=== PATIENT | male | born 1980 | race African-American/Black ===

== ENCOUNTER 2016-08-24 14:31 | Inpatient (IN) | payer OTHER ==
[~2016-08-24] VITALS: Ht 193 cm; Wt 142.0 kg
[~2016-08-24 14:31] MED LIST: LORAZEPAM 1 MG TABLET FOR INSOMNIA PO PRN
[2016-08-24 14:45] VITALS: BP 134/80
--- NOTE | 2016-08-24 14:45 | NUR ---
MS NICANOR OPENING RECEIVED PATIENT FOR CLINICAL TRIAL BY DR SILVA. PATIENT DENIES SOB, DIFFICULTY BREATHING OR PAIN. ALL BELONGINGS WITH PATINET CHARTED AND ACCOUNTED FOR. PATIENT STATES NO NEEDS. STATES HE WAS EDUCATED ON TRIAL BEFORE COMING HERE. PATIENT EDUCATED ON SMOKING POLICY AND ALLOTED TIMES WE ARE ABLE TO TAKE THEM OUT. PATIENT STATES UNDERSTANDING. ORDERS WILL BE INPUT ACCORDING TO .
[2016-08-24] MEDS ORDERED: MAGNESIUM HYDROXIDE 30 ML UDC PO PRN (15:00)
[2016-08-24 16:00] VITALS: BP 137/84
--- NOTE | 2016-08-24 18:35 | NUR ---
MS RN CLOSING PATIENT STATES NO NEEDS. ROUNDED Q2H OR LESS. STABLE. CALL LIGHT IN REACH, BED LOWERED AND LOCKED, RAILS UPX3 FOR SAFETY. WILL ENDORSE CARE TO BABAR RN
--- NOTE | 2016-08-24 19:30 | NUR ---
MS NURSE'S OPENING NOTES RECEIVED REPORT FROM DAY NURSE. PATIENT WAS IN HIS ROOM AND HE MENTIONED THAT HE GOES TO BED AT 10PM AND REQUESTED TO HAVE HIS NIGHT MED SCHEDULE TO BE CHANGED TO EARLIER SINCE HE GOES TO SLEEP AT 10PM. I TOLD HIM THAT I WILL DOCUMENT HIS REQUEST IN THE NURSE'S NOTES.
[2016-08-24 20:00] VITALS: BP 111/94
[2016-08-24] MEDS: chlorproMAZINE HCL 25 MG TABLET PO SCH (20:21)
[2016-08-24] MEDS: MIRTAZAPINE 15 MG TABLET PO SCH (20:21)
[2016-08-24] MEDS: DIVALPROEX SODIUM 500 MG TABLET.DR PO SCH (20:21)
--- NOTE | 2016-08-24 20:30 | NUR ---
MS NURSES NOTES ANGLE ROLL OPERATOR SCHEDULE PT REQUESTED THAT HS MEDS BE ADMINISTERED AROUND 1999 SINCE HE WILL BE SLEEPING AT 2200. I ADMINISTERED HIS DEPAKOTE, REMERON, AND THORAZINE EARLIER THAN SCHEDULED DUE TO PATIENT'S REQUEST. CHECKED AND OKAYED BY NURSE EVELYN SCHULTZ.
[2016-08-25 03:24] VITALS: BP 111/94
--- NOTE | 2016-08-25 07:20 | NUR ---
RN INITIAL NOTES RECEIVED PT IN BED, A/O X4, ABLE TO MAKE NEED KNOWN, PT IS ON RA, SATING WELL, NO S/S OF RESP. DISTRESS OR SOB NOTED AT THIS TIME, PT WAS ON HIS PHONE, ANSWERING QUESTIONS, PLEASANT, EXPLAINED SMOKING SCHEDULE TO PT, VERBALIZED UNDERSTANDING, EXPLAINED PLAN OF CARE, PT NODDED HEAD, ALL SAFETY MEASURES IN PLACE AT ALL TIMES, CALL LIGHT WITHIN EASY REACH, WILL MONITOR PT CLOSELY
--- NOTE | 2016-08-25 07:27 | NUR ---
MS NURSE'S CLOSING NOTES GAVE REPORT TO MORNING NURSE. PATIENT IS RESTING IN BED, SIDE RAILS UP X2, CALL LIGHT WITHIN REACH AND NO SIGNS OF DISTRESS OR SOB.
--- NOTE | 2016-08-25 07:28 | NUR ---
MS NURSES NOTE- PT SLEEPING HOURS PT WAS VERY COOPERATIVE. WENT TO BED AT 10 PM AND WOKE UP AT 7 AM= 9 HOURS OF SLEEP.
[2016-08-25 08:00] VITALS: BP 136/78
[2016-08-25] MEDS: HCTZ 25 MG PO SCH (08:50)
--- NOTE | 2016-08-25 09:54 | NUR ---
RN NOTES PT IN ROOM WATCHING TV, PEACEFULLY, ALL NEEDS MET AT THIS TIME, WILL MONITOR CLOSELY
--- NOTE | 2016-08-25 13:30 | NUR ---
RN NOTES AWARE REGARDING NIGHT MEDICATION, OKAY TO GIVE @ 2000
--- NOTE | 2016-08-25 14:54 | NUR ---
RN NOTES REPORT GIVEN TO MELI RODRIGUEZ XIOMY
--- NOTE | 2016-08-25 15:01 | NUR ---
MS RN NOTES RECEIVED REPORT FROM CAROLE FOR CONTINUITY OF CARE.
[2016-08-25 16:00] VITALS: BP 140/75
--- NOTE | 2016-08-25 18:58 | NUR ---
MS RN CLOSING NOTES PATIENT IN BED, NOT IN DISTRESS, NO SOB NOTED. PATIENT IS AMBULATORY WITH STEADY GAIT AND BALANCE. PATIENT APPEARS CALM AND RELAX, COOPERATIVE WITH STAFF. CALL LIGHT WITHIN REACH. WILL ENDORSE TO ESTIMATE CLERK RN FOR CONTINUITY OF CARE.
[2016-08-25 19:00] VITALS: BP 116/85
--- NOTE | 2016-08-25 19:25 | NUR ---
MS RN OPENING NOTES: RECEIVED PATIENT IN BED AWAKE AND SITTING UP WATCHING TELEVISION. PT A/O X4. PT AMBULATORY WITH A STEADY GAIT. KEPT CLEAN, DRY, AND COMFORTABLE. SKIN IS INTACT. PT ON ROOM AIR. CALL LIGHT WITHIN PT'S REACH. BED KEPT IN LOCKED, LOWEST POSITION, AND SIDE RAILS X2 UP. WILL CONTINUE TO MONITOR PT.
[2016-08-25 20:00] VITALS: BP 116/85
[2016-08-25] MEDS: chlorproMAZINE HCL 25 MG TABLET PO SCH (20:15)
[2016-08-25] MEDS: DIVALPROEX SODIUM 500 MG TABLET.DR PO SCH (20:15)
[2016-08-25] MEDS: MIRTAZAPINE 15 MG TABLET PO SCH (20:15)
--- NOTE | 2016-08-25 20:18 | NUR ---
MR RN NOTES: THORAZINE 150MG, DEPAKOTE 500MG, AND REMERON 15MG WAS GIVEN PO AT THIS TIME PER PATIENT'S REQUEST. DR. SILVA AWARE AND OKAY WITH IT.
--- NOTE | 2016-08-25 21:00 | NUR ---
MS RN NOTES: SEEN PT SLEEPING AT THIS TIME, NOT IN APPARENT DISTRESS WILL CONTINUE TO MONITOR
--- NOTE | 2016-08-26 06:55 | NUR ---
MS RN CLOSING NOTES ALL NEEDS WERE ATTENDED. PATIENT IN BED AWAKE. NO SIGNS AND SYMPTOMS OF DISTRESS NOTED. NO SOB NOTED. PT AMBULATORY WITH STEADY GAIT AND BALANCE. PT ON CLINICAL TRIAL STUDY. KEPT CLEAN, DRY, AND COMFORTABLE. PT ON ROOM AIR AND TOLERATING WELL. BED IN LOWEST, LOCKED POSITION, AND SIDE RAILS X 2 UP. PT SLEPT FOR NINE HOURS. WILL ENDORSE TO DAY SHIFT NURSE FOR CONTINUITY OF CARE.
--- NOTE | 2016-08-26 07:30 | NUR ---
MS/RN Patient received Patient received from nightman, no needs at this time. Call light within reach, will continue to monitor and ensure safety.
[2016-08-26 08:00] VITALS: BP 130/81
[2016-08-26] MEDS: HCTZ 25 MG PO SCH (08:53)
[2016-08-26] MEDS: LORAZEPAM 1 MG TABLET FOR AGITATION PO PRN (08:59)
--- NOTE | 2016-08-26 09:00 | NUR ---
MS/RN Ativan Ativan 1mg given PO at patient's request as stated that he was starting to feel anxious. Will monitor effectiveness.
[2016-08-26 10:00] VITALS: BP 130/81
--- NOTE | 2016-08-26 13:30 | NUR ---
MS/RN Behavior Patient has remained calm and cooperative throughout this morning, no behavior concerns.
[2016-08-26 16:00] VITALS: BP 136/89
[2016-08-26 16:27] VITALS: BP 136/89
--- NOTE | 2016-08-26 18:00 | NUR ---
MS/RN End note No changes in plan of care, to continue with study orders. No behavior concerns. Will endorse to material handler 2nd shift.
--- NOTE | 2016-08-26 19:30 | NUR ---
MS/RN OPENING NOTES RECEIVED PT AWAKE, TALKING ON HIS CELL PHONE. A/OX4. BREATHING EVEN, UNLABORED, DENIES PAIN. AMBULATING IN THE HALLWAYS. IS CALM, COOPERATIVE, DENIES THOUGHTS OF SI/HI. BED IN LOW/LOCKED POSITION, CALL LIGHT IN REACH. BED RAILS UPX2. WILL CONTINUE TO MONITOR
[2016-08-26 20:00] VITALS: BP 139/80
[2016-08-26] MEDS: DIVALPROEX SODIUM 500 MG TABLET.DR PO SCH (21:22)
[2016-08-26 22:00] VITALS: BP 139/80
[2016-08-26] MEDS ORDERED: MIRTAZAPINE 15 MG TABLET PO SCH (22:00)
[2016-08-26] MEDS ORDERED: chlorproMAZINE HCL 25 MG TABLET PO ONE (22:00)
--- NOTE | 2016-08-26 22:00 | NUR ---
MS/RN NOTES PT BACK FROM SMOKING, ACCOMPANIED BY HAT BRIM CURLER. WHEN ASKED IF PT IS EXPERIENCING ANY HALLUCINATIONS AT THIS TIME, PT BECAME A LITTLE GUARDED AND DENIED ANY CURRENT HALLUCINATIONS. MENTIONED THAT HE'S HAD THEM BEFORE BUT NOT AT THIS TIME. STATED "WHY DO YOU HAVE TO ASK ME QUESTIONS LIKE THAT?". INFORMED HIM THAT WE WANT TO SEE IF THE MEDICATION IS HELPFUL OR NOT. PT WALKED BACK TO HIS ROOM
--- NOTE | 2016-08-27 02:00 | NUR ---
MS/RN NOTES PT ASLEEP, BREATHING EVEN AND UNLABORED. WILL CONTINUE TO MONITOR
--- NOTE | 2016-08-27 07:20 | NUR ---
MS/RN CLOSING NOTES PT ASLEEP, EASILY AROUSABLE, RESTING COMFORTABLY IN BED. ON ROOM AIR, NO S/S OF DISTRESS. DENIES PAIN. NO CHANGES OVERNIGHT. PT SLEPT 8 HOURS. ALL NEEDS MET AND ATTENDED TO. MADE PT COMFORTABLE THROUGHOUT SHIFT. ENDORSED TO AM SHIFT XIOMY.
--- NOTE | 2016-08-27 07:30 | NUR ---
MS/RN Patient received Patient received from tool and cutter grinder. No needs or concerns at this time, remains cooperative with plan of care. Will continue to monitor and ensure safety.
[2016-08-27 08:00] VITALS: BP 140/76
[2016-08-27] MEDS: HCTZ 25 MG PO SCH (08:00)
--- NOTE | 2016-08-27 08:05 | NUR ---
MS/RN Medications Morning medications given as ordered.
[2016-08-27] MEDS: LORAZEPAM 1 MG TABLET FOR AGITATION PO PRN ×2 (08:59→15:00)
--- NOTE | 2016-08-27 09:00 | NUR ---
MS/RN Ativan 1mg ativan given PO at patient's request as starting to feel anxious. Will monitor effect.
[2016-08-27 10:10] VITALS: BP 140/76
[2016-08-27 16:00] VITALS: BP 124/100
--- NOTE | 2016-08-27 18:35 | NUR ---
MS/RN End note No changes at this time. Ativan last administered at 1500. No behavior concerns, will endorse to awake overnight counselor.
--- NOTE | 2016-08-27 19:30 | NUR ---
RN NOTE; RECEIVED PT SITTING ON THE CHAIR. BREATHING EVENLY. NO SOB. NO DISTRESS. DEMANDING TO TAKE HIS NIGHT MEDS AT 1999 AND ASKING TO GO FOR A SMOKE AFTER THAT. EXPLAINED TO THE PT THAT I CAN TALK TO PHARMACY FOR POSSIBLE CHANGE OF ADMINISTRATION TIME ON THE NIGHT MEDS. NEEDS ATTENDED. CALL LIGHT WITHIN REACH. WILL CONT TO MONITOR
[2016-08-27 20:00] VITALS: BP 123/85
[2016-08-27] MEDS ORDERED: DIVALPROEX SODIUM 500 MG TABLET.DR PO SCH (20:00)
[2016-08-27] MEDS ORDERED: MIRTAZAPINE 15 MG TABLET PO SCH (20:00)
--- NOTE | 2016-08-27 20:40 | NUR ---
NIGHT MEDICATION GIVEN AT 1999 PER PT'S REQUEST. PHARMACY MADE AWARE.
[2016-08-27] MEDS: LORAZEPAM 1 MG TABLET FOR INSOMNIA PO PRN (21:29)
--- NOTE | 2016-08-27 21:29 | NUR ---
ATIVAN 2MG GIVEN PER PT'S REQUEST FOR ANXIETY AND INABILITY TO SLEEP. WILL CONT TO MONITOR
[2016-08-27] MEDS ORDERED: chlorproMAZINE HCL 25 MG TABLET PO ONE (22:00)
[2016-08-28] MEDS: HCTZ 25 MG PO SCH (06:32)
--- NOTE | 2016-08-28 06:53 | NUR ---
RN NOTE; PT AWAKE AND AMBULATORY. TAKING SHOWER. W/ EPISODES OF ANXIETY. BREATHING EVENLY. NO SOB. NO DISTRESS. NO ACUTE CHANGES DURING THE NIGHT. NO C/O HALLUCINATIONS. NO VERBALIZATION OF SUICIDE,NEEDS ATTENDED. WILL CONT TO MONITOR AND WILL ENDORSE TO AM SHIFT FOR XIOMY.
[2016-08-28 08:00] VITALS: BP 118/66
--- NOTE | 2016-08-28 08:00 | NUR ---
AM RN NOTES RECEIVED PT IN STABLE CONDITION, WALKING IN HALLWAY, PROVIDED WITH BREAKFAST, WILL MONITOR.
[2016-08-28] MEDS: LORAZEPAM 1 MG TABLET FOR INSOMNIA PO PRN ×2 (09:14→21:17)
--- NOTE | 2016-08-28 09:15 | NUR ---
PT NOTED WITH RESTRESS, WALKING IN HALLWAY NOT ABLE TO SIT DOWN, STATING:"I NEED MY ATIVAN 2 MG BECAUSE 1 MG IS NOT HELPING", DR. PRUITT CALLED AND PER OKAY TO GIVE ATIVAN 2 MG FOR NOW.
[2016-08-28 10:00] VITALS: BP 115/62
[2016-08-28 16:45] VITALS: BP 118/66
--- NOTE | 2016-08-28 18:31 | NUR ---
PT IN STABLE CONDITION, ATIVAN WITH HELP, NO ANXIETY AT THIS TIME, WILL INDORSE TO NEXT SHIFT FOR XIOMY.
--- NOTE | 2016-08-28 19:30 | NUR ---
RN NOTE; RECEIVED PT SITTING ON THE CHAIR. IN HIS ROOM. BREATHING EVENLY. NO SOB. NO DISTRESS. NEEDS ATTENDED. CALL LIGHT WITHIN REACH. WILL CONT TO MONITOR
[2016-08-28 20:00] VITALS: BP 133/78
--- NOTE | 2016-08-28 20:08 | NUR ---
S/B DR. ANDREWS W/ BELIAO.
--- NOTE | 2016-08-28 21:17 | NUR ---
ATIVAN 2MG GIVEN FOR C/O INSOMNIA AND ANXIETY. WILL CONT TO MONITOR
[2016-08-28] MEDS: ACETAMINOPHEN ES 500 MG TABLET PO PRN (22:31)
--- NOTE | 2016-08-28 22:33 | NUR ---
TYLENOL GIVEN ORDERED FOR C/O MILD BODY ACHE. WILL CONT TO MONITOR
[2016-08-29] MEDS: HCTZ 25 MG PO SCH (06:09)
--- NOTE | 2016-08-29 06:58 | NUR ---
RN NOTE; PT REMAINED STABLE DURING THE REINFORCED IRONWORKER . NO ACUTE CHANGES. NO PSYCH OR BEHAVIORAL ISSUES. HAD A GOOD NIGHT SLEEP. WILL CONT TO MONITOR AND WILL ENDORSE TO AM SHIFT FOR XIOMY.
--- NOTE | 2016-08-29 07:30 | NUR ---
MS RN AM NOTES PT AWAKE, OUT OF BED, AAO X 4, ON ROOM AIR, NOT IN ANY DISTRESS. DENIES ANY PAIN AT THIS TIME. NO IV ACCESS. AMBULATORY, NO SKIN ISSUES. CALL LIGHT WITHIN REACH. BED LOW LOCKED. SR UP X 2, INSTRUCTED TO CALL FOR ASSISTANCE. SAFETY MEASURES IN PLACE. WILL CONTINUE TO MONITOR. CALM AND COOPERATIVE
[2016-08-29 08:00] VITALS: BP 119/77
[2016-08-29] MEDS: LORAZEPAM 1 MG TABLET FOR AGITATION PO PRN (08:36)
[2016-08-29 10:00] VITALS: BP 119/77
[2016-08-29 16:00] VITALS: BP 114/65
[2016-08-29 18:00] VITALS: BP 114/65
--- NOTE | 2016-08-29 18:37 | NUR ---
MS RN NOTES PT RESTING IN BED, AAO X 4, ON ROOM AIR, NOT IN ANY DISTRESS. DENIES ANY PAIN AT THIS TIME. NO IV ACCESS. AMBULATORY, NO SKIN ISSUES. CALL LIGHT WITHIN REACH. BED LOW LOCKED. SR UP X 2, INSTRUCTED TO CALL FOR ASSISTANCE. VSS. SAFETY MEASURES IN PLACE. ALL NEEDS MET. WILL ENDORSE TO NEXT SHIFT FOR XIOMY. SEEN BY DR. SILVA EARLIER.
--- NOTE | 2016-08-29 19:30 | NUR ---
RN NOTE; RECEIVED PT SITTING ON THE CHAIR. IN HIS ROOM. BREATHING EVENLY. NO SOB. NO DISTRESS. DISCUSSED AM LABS AND NPO STATUS W/ PT W/ UNDERSTANDING. NEEDS ATTENDED. CALL LIGHT WITHIN REACH. WILL CONT TO MONITOR
[2016-08-29 20:00] VITALS: BP 114/83
[2016-08-29] MEDS: LORAZEPAM 1 MG TABLET FOR INSOMNIA PO PRN (20:10)
[2016-08-30] VITALS (7 sets, daily range): BP systolic 100–132; BP diastolic 55–71
--- NOTE | 2016-08-30 06:24 | NUR ---
RN NOTE; PT REMAINED CALM AND STABLE DURING THE ROUND CORNER CUTTER OPERATOR . NO ACUTE CHANGES. NO PSYCH OR BEHAVIORAL ISSUES. HAD A GOOD NIGHT SLEEP. NPO FOR TODAY'S BLOOD DRAW. WILL CONT TO MONITOR AND WILL ENDORSE TO AM SHIFT FOR XIOMY.
--- NOTE | 2016-08-30 07:30 | NUR ---
MS/RN OPENING NOTE PT. IS IN BED AWAKE, A&OX4. PT. IS NPO AT THIS TIME FOR MORNING LABS. PT. IS BREATHING ON ROOM AIR, NO SOB, AND NOT IN DISTRESS. CALL LIGHT WITHIN REACH, AND NEEDS ATTENDED TO.
[2016-08-30] MEDS: HCTZ 25 MG PO SCH (09:12)
[2016-08-30] MEDS: LORAZEPAM 1 MG TABLET FOR AGITATION PO PRN (17:33)
--- NOTE | 2016-08-30 17:57 | NUR ---
MS/STUCCO PLASTERER PT. C/O AGITATION, 1MG OF ATIVAN WAS GIVEN.
--- NOTE | 2016-08-30 18:57 | NUR ---
MS/RN CLOSING NOTE PT. IS A&OX4, NO S/S OF DISTRESS. PT. IS NOT C/O AGITATION. BED IS IN LOW POSITION, SIDE RAILS IN APPROPRIATE POSITION. NEEDS ATTENDED TO. WILL ENDORSE REPORT TO TEACHER OF THE DEAF NURSE.
--- NOTE | 2016-08-30 20:00 | NUR ---
PATIENT RESTING COMFORTABLY IN BED, NO SOB, BREATHING IS EVEN AND UNLABORED, NO HALLUCINATIONS AT THIS TIME. KEPT SAFE AND COMFORTABLE, CALL LIGHT WITHIN REACH.
[2016-08-30] MEDS ORDERED: LORAZEPAM 1 MG TABLET FOR INSOMNIA PO PRN (22:00)
[2016-08-31] MEDS: MAG HYDROX/AL HYDROX/SIMETH 30 ML UDC PO PRN (04:22)
[2016-08-31] MEDS: HCTZ 25 MG PO SCH (05:29)
[2016-08-31 05:30] VITALS: BP 121/60
--- NOTE | 2016-08-31 06:43 | NUR ---
PATIENT AWAKE, NO RESPIRATORY DISTRESS, DENIES ANY PAIN, NO HALLUCINATIONS AT THIS TIME, COMPLAINED OF ABDOMINAL UPSET, GIVEN MAALOX, SHOWERED EARLY, NEEDS ATTENDED, CALL LIGHT WITHIN REACH.
--- NOTE | 2016-08-31 07:30 | NUR ---
MS/RN Patient received Patient received from night patrol inspector. Pacing in hallway, wanting to go outside to smoke. Explained to him that w have a schedule that we are following, patient upset by this response and went back to room. Will continue to monitor and ensure safety.
[2016-08-31 08:00] VITALS: BP 131/73
--- NOTE | 2016-08-31 08:50 | NUR ---
MS/RN Medications Patient refusing to take investigational medication at this time, stating that he wants to smoke first.
[2016-08-31] MEDS: INVEST MED MK-8189 MISC 1 TAB EA PO SCH (09:17)
[2016-08-31] MEDS: INVEST MED MK-8189 MISC 1 CAP EA PO SCH (09:18)
[2016-08-31] MEDS: LORAZEPAM 1 MG TABLET FOR AGITATION PO PRN ×2 (09:18→18:47)
--- NOTE | 2016-08-31 09:20 | NUR ---
RN notes patient returned from smoking outside; ambulatory with steady balanced gait; c/o anxiety, requesting ativan; ativan 1mg po given; will continue to monitor.
[2016-08-31 10:30] VITALS: BP 131/73
[2016-08-31 16:00] VITALS: BP 124/89
--- NOTE | 2016-08-31 16:41 | NUR ---
RN NOTES patient escorted off unit by FOUNDATION ENGINEER to smoke; denies any discomfort at this time.
--- NOTE | 2016-08-31 18:48 | NUR ---
RN NOTES patient agitated; ativan 1mg po given; will inform PM nurse.
--- NOTE | 2016-08-31 20:00 | NUR ---
RN NOTES RECEIVED PX AWAKE, ALERT, ORIENTED X 3, AMBULATORY; NOT IN DISTRESS; DENIED PAIN, SOB, N/V; PX SAYS HE IS COMFORTABLE; CALL LIGHT WITHIN REACH.
[2016-08-31 20:06] VITALS: BP 132/70
--- NOTE | 2016-08-31 21:00 | NUR ---
NICANOR NOTES PX CAME BACK FROM SMOKE BREAK, ACCOMPANIED BY TERESITA RIVAS
[2016-08-31 22:00] VITALS: BP 132/70
--- NOTE | 2016-09-01 06:21 | NUR ---
RN NOTES CONDITION AND NEURO STATUS UNCHANGED; PX AWAKE NOW, SLEPT FOR 7 HOURS; NOT IN DISTRESS; DENIED PAIN ,SOB, N/V, DIZZINESS; DUE MEDS GIVEN; TOOK A SHOWER; NEEDS ATTENDED; CALL LIGHT WITHIN REACH. WILL ENDORSE TO NEXT RN.
[2016-09-01] MEDS: HCTZ 25 MG PO SCH (06:37)
[2016-09-01 08:00] VITALS: BP 105/77
--- NOTE | 2016-09-01 08:00 | NUR ---
AM RN NOTES RECEIVED PT IN STABLE CONDITION, NO BEHAVIOR PROBLEMS NOTED, NO ANXIETY OR AGITATION, PROVIDED WITH BREAKFAST, WILL MONITOR PT.
[2016-09-01] MEDS: INVEST MED MK-8189 MISC 1 CAP EA PO SCH (09:30)
[2016-09-01] MEDS: INVEST MED MK-8189 MISC 1 TAB EA PO SCH (09:30)
[2016-09-01 10:00] VITALS: BP 109/65
[2016-09-01] MEDS: LORAZEPAM 1 MG TABLET FOR AGITATION PO PRN (13:28)
[2016-09-01 16:00] VITALS: BP 122/80
[2016-09-01] MEDS: ACETAMINOPHEN ES 500 MG TABLET PO PRN (16:48)
--- NOTE | 2016-09-01 19:32 | NUR ---
PT IN STABLE CONDITION, RESTING IN BED, AWAKE, INDORSED TO NEXT SHIFT FOR XIOMY.
[2016-09-01 20:00] VITALS: BP 122/76
--- NOTE | 2016-09-01 20:00 | NUR ---
PATIENT IN THE ROOM, TALKING ON THE PHONE, CALM, DENIES ANY HALLUCINATIONS AT THIS TIME. WILL CONTINUE TO MONITOR.
[2016-09-01 22:00] VITALS: BP 122/76
--- NOTE | 2016-09-02 02:15 | NUR ---
PATIENT RESTING COMFORTABLY IN BED, NO DISTRESS, WILL CONTINUE TO MONITOR.
[2016-09-02] MEDS: HCTZ 25 MG PO SCH (05:56)
--- NOTE | 2016-09-02 06:06 | NUR ---
GIVEN HCTZ 25 MG PO, BP 140/77 HR 89
--- NOTE | 2016-09-02 06:43 | NUR ---
PATIENT IN BED, ALERT AND AWAKE, NO DISTRESS, DENIES HALLUCINATIONS AT THIS TIME, SLEPT FOR 8 HOURS, SHOWERED EARLY, KEPT SAFE, CALL LIGHT WITHIN REACH.
[2016-09-02 08:00] VITALS: BP 104/61
--- NOTE | 2016-09-02 08:00 | NUR ---
RECEIVED PT IN STABLE CONDITION. PT IS A/O X4. NO SOB OR ANY S/S OF DISTRESS NOTED. WILL CONTINUE TO MONITOR THROUGHOUT SHIFT.
[2016-09-02] MEDS: INVEST MED MK-8189 MISC 2 TAB EA PO SCH (09:29)
[2016-09-02] MEDS: INVEST MED MK-8189 MISC 2 CAP EA PO SCH (09:29)
[2016-09-02 10:00] VITALS: BP 108/65
[2016-09-02 16:58] VITALS: BP 124/80
[2016-09-02] MEDS: LORAZEPAM 1 MG TABLET FOR AGITATION PO PRN (18:49)
--- NOTE | 2016-09-02 18:52 | NUR ---
MS RN CLOSING NOTES PT IS CURRENTLY IN STABLE CONDITION. PATIENT IS A/OX4. PT EXPRESSED FEELING AGITATED AND ANXIOUS. GAVE PT PRN ATIVAN REQUESTED. NO OTHER S/S OF SOB OR DISTRESS NOTED. WILL ENDORSE CARE TO PM SHIFT.
--- NOTE | 2016-09-02 19:30 | NUR ---
RECEIVED PT IN STABLE CONDITION. PT IS A/O X4. NO SOB OR ANY S/S OF DISTRESS NOTED. WILL CONTINUE TO MONITOR THROUGHOUT SHIFT.
[2016-09-02 20:00] VITALS: BP 128/83
[2016-09-02 22:00] VITALS: BP 128/83
[2016-09-03] MEDS: HCTZ 25 MG PO SCH (06:39)
[2016-09-03 08:00] VITALS: BP 111/49
--- NOTE | 2016-09-03 08:00 | NUR ---
MS RN NOTES PATIENT IN BED RESTING NO SOB OR ACUTE DISTRESS NOTED. WILL CONTINUE TO MONITOR.
[2016-09-03] MEDS: INVEST MED MK-8189 MISC 2 TAB EA PO SCH (09:24)
[2016-09-03] MEDS: INVEST MED MK-8189 MISC 2 CAP EA PO SCH (09:24)
[2016-09-03 10:00] VITALS: BP 111/49
[2016-09-03 16:00] VITALS: BP 102/62
--- NOTE | 2016-09-03 18:53 | NUR ---
MS RN NOTES PATIENT IN BED RESTING. NOTED SLEEPING NUMBER OF HOURS 5, PATIENT ALSO NOTED ASKING TO BE TAKEN FOR SMOKING X2. WILL ENDORSE CARE TO PM SHIFT.
--- NOTE | 2016-09-03 19:30 | NUR ---
RECEIVED PT IN STABLE CONDITION. PT IS A/O X4. NO SOB OR ANY S/S OF DISTRESS NOTED. WILL CONTINUE TO MONITOR THROUGHOUT SHIFT.
[2016-09-03 20:00] VITALS: BP 105/60
[2016-09-03] MEDS: ZOLPIDEM TARTRATE 10 MG TABLET PO PRN (20:53)
[2016-09-03 22:00] VITALS: BP 105/60
[2016-09-04] MEDS: HCTZ 25 MG PO SCH (06:37)
--- NOTE | 2016-09-04 06:57 | NUR ---
MS RN NOTE PATIENT STABLE. SLEEPING WELL. NO DISTRESS NOTED. ALL NEEDS MET AND ATTENDED TO. WILL ENDORSE TO DAY SHIFT FOR XIOMY.
[2016-09-04 08:00] VITALS: BP 109/76
--- NOTE | 2016-09-04 08:00 | NUR ---
MS RN NOTES PATIENT IN BED RESTING NO SOB OR ACUTE DISTRESS NOTED. BED IN LOW LOCKED POSITION. CALL LIGHT WITHIN REACH WILL CONTINUE TO MONITOR.
[2016-09-04] MEDS: INVEST MED MK-8189 MISC 2 TAB EA PO SCH (09:09)
[2016-09-04] MEDS: INVEST MED MK-8189 MISC 2 CAP EA PO SCH (09:09)
[2016-09-04 10:00] VITALS: BP 109/76
[2016-09-04 16:00] VITALS: BP 122/81
--- NOTE | 2016-09-04 19:28 | NUR ---
MS RN NOTES PATIENT IN BED RESTING NO SOB OR ACUTE DISTRESS NOTED. PATIENT NOTED SLEEPING X3 HOURS. ENDORSED CARE TO PM SHIFT.
[2016-09-04] MEDS: LORAZEPAM 1 MG TABLET FOR AGITATION PO PRN (20:23)
[2016-09-04 20:51] VITALS: BP 140/76
[2016-09-04 22:59] VITALS: BP 140/76
--- NOTE | 2016-09-05 06:21 | NUR ---
MS RN NOTE PATIENT STABLE. ALL NEEDS MET AND ATTENDED TO. WILL ENDORSE TO DAY SHIFT.
[2016-09-05] MEDS: HCTZ 25 MG PO SCH (06:51)
--- NOTE | 2016-09-05 07:19 | NUR ---
RN NOTES RECEIVED PT IN BED. SLEEPING BUT EASY TO AROUSE. IN NO APPARENT DISTRESS. RESPIRATIONS EVEN AND UNLABORED. WILL CONTINUE TO MONITOR. CALL LIGHT WITHIN REACH
[2016-09-05 08:00] VITALS: BP 100/62
[2016-09-05] MEDS: INVEST MED MK-8189 MISC 3 TAB EA PO SCH (09:16)
[2016-09-05] MEDS: INVEST MED MK-8189 MISC 3 CAP EA PO SCH (09:16)
[2016-09-05] MEDS: LORAZEPAM 1 MG TABLET FOR AGITATION PO PRN ×2 (09:23→18:37)
--- NOTE | 2016-09-05 10:00 | NUR ---
RN NOTES PT STARTED ON INVESTIGATIONAL DRUG. TOOK DUE MEDS. TOLERATED WELL. GIVEN PRN ATIVA PT VERBALIZED BEING ANXIOUS. NOTED. WILL CONTINUE TO MONITOR
--- NOTE | 2016-09-05 17:30 | NUR ---
RN NOTES PT SEEN AND EXAMINED BY DR SILVA. REPORTED THAT PT SAID HE DIDN'T LIKE THE EFFECT OF AMBIEN. PER , OK TO ADMINISTER ATIVAN AND AMBIEN TOGETHER. NOTED. PT EDUCATION DONE. SAID HE STILL DOESN'T WANT AMBIEN. WILL CONTINUE TO MONITOR
--- NOTE | 2016-09-05 18:30 | NUR ---
RN NOTES PT IN BED. AWAKE,ALERT, ORIENTED X 3. IN NO APPARENT DISTRESS. TOLERATED ALL DUES MEDS. WILL ENDORSE TO ONCOMING SHIFT
--- NOTE | 2016-09-05 19:17 | NUR ---
MS RN NOTES RECEIVED PT IN BED, AWAKE, A/O X 4. VERBALLY RESPONSIVE, ABLE TO VERBALIZE NEEDS. NO ACUTE DISTRESS, NO SOB NOTED. RESPIRATION IS EVEN AND UNLABORED. ALL NEEDS ATTENDED AND MET. KEPT COMFORTABLE. NO C/O PAIN OR DISCOMFORT AT THIS TIME. SAFETY PRECAUTIONS OBSERVED. CALL LIGHT WITHIN REACH. WILL CONT TO MONITOR.
[2016-09-05 20:00] VITALS: BP 118/67
[2016-09-05 22:00] VITALS: BP 118/67
[2016-09-06] MEDS ORDERED: HOME MED MISCELLANEOUS PO SCH (06:00)
--- NOTE | 2016-09-06 07:11 | NUR ---
MS RN NOTES PT IN BED, AWAKE, A/O X 4. VERBALLY RESPONSIVE, ABLE TO VERBALIZE NEEDS. NO ACUTE DISTRESS, NO SOB NOTED. RESPIRATION IS EVEN AND UNLABORED. ALL NEEDS ATTENDED AND MET. KEPT COMFORTABLE. NO C/O PAIN OR DISCOMFORT AT THIS TIME. SAFETY PRECAUTIONS OBSERVED. CALL LIGHT WITHIN REACH. WILL ENDORSE TO NEXT SHIFT FOR XIOMY. .
[2016-09-06 08:00] VITALS: BP 138/88
[2016-09-06] MEDS: INVEST MED MK-8189 MISC 3 TAB EA PO SCH (08:52)
[2016-09-06] MEDS: INVEST MED MK-8189 MISC 3 CAP EA PO SCH (08:52)
[2016-09-06 16:00] VITALS: BP 118/86
--- NOTE | 2016-09-06 19:25 | NUR ---
MS RN CLOSING NOTES NO SIGNIFICANT CHANGES IN PATENT CONDITION THROUGHOUT THE SHIFT. NO SOB OR DISTRESS NOTED AT THIS TIME. PATIENT DENIES PAIN AT THIS TIME. BED IN A LOW POSITION, CALL LIGHT IS WITHIN PATIENT REACH. WILL ENDORSE FOR XIOMY.
--- NOTE | 2016-09-06 19:30 | NUR ---
MS RN NOTES RECEIVED PT SITTING UP IN A CHAIR WATCHING TV. A/OX 4 . VERBALLY RESPONSIVE. STABLE. NO DISTRESS, NO SOB NOTED AT THIS TIME. DENIES ANY PAIN OR DISCOMFORT AT THIS TIME. ALL NEEDS ATTENDED AND MET KEPT COMFORTABLE. CALL LIGHT WITHIN REACH. WILL CONT TO MONITOR.
[2016-09-06] MEDS: LORAZEPAM 1 MG TABLET FOR AGITATION PO PRN (19:46)
[2016-09-06 20:00] VITALS: BP 125/72
[2016-09-06 22:00] VITALS: BP 125/72
[2016-09-06] MEDS ORDERED: LORAZEPAM 1 MG TABLET FOR INSOMNIA PO PRN (22:00)
[2016-09-07] MEDS ORDERED: HYDROCHLOROTHIAZIDE 25 MG TABLET PO SCH (06:00)
--- NOTE | 2016-09-07 07:20 | NUR ---
MS RN NOTES RECEIVED PT SITTING UP IN A CHAIR WATCHING TV. A/OX 4 . VERBALLY RESPONSIVE. STABLE. NO DISTRESS, NO SOB NOTED AT THIS TIME. DENIES ANY PAIN OR DISCOMFORT AT THIS TIME. ALL NEEDS ATTENDED AND MET KEPT COMFORTABLE. CALL LIGHT WITHIN REACH. ENDORSED TO NEXT SHIFT FOR XIOMY.
[2016-09-07 08:00] VITALS: BP 109/75
--- NOTE | 2016-09-07 08:20 | NUR ---
RN AM NOTES RECEIVED PATIENT IN STABLE CONDITION, SITTING IN CHAIR AT SIDE OF BED, LISTENING TO RADIO THROUGH EARPHONES. PATIENT ASKED ABOUT MEDICATIONS, INFORMED HIM THAT MEDICATION PASS IS ABOUT TO START. PATIENT NODDED UNDERSTANDING. WILL CONTINUE TO MONITOR.
[2016-09-07] MEDS: INVEST MED MK-8189 MISC 3 CAP EA PO SCH (09:12)
[2016-09-07] MEDS: HYDROCHLOROTHIAZIDE 25 MG TABLET PO SCH (09:12)
[2016-09-07] MEDS: INVEST MED MK-8189 MISC 3 TAB EA PO SCH (09:12)
--- NOTE | 2016-09-07 10:55 | NUR ---
PATIENT TRANSFERS OFTEN FROM BED TO CHAIR AND AMBULATES AROUND ROOM FREQUENTLY THROUGHOUT DAY. SLEEPS FOR A LITTLE WHILE NEEDED, THEN GETS UP AND AMBULATES AROUND ROOM WHILE LISTENING TO MUSIC. NO NEED FOR DVT PUMPS OR CHEM PROPHYLAXIS PER MD AT THIS TIME. WILL CONTINUE TO MONITOR.
[2016-09-07 16:00] VITALS: BP 126/62
--- NOTE | 2016-09-07 19:03 | NUR ---
RN PM NOTES PATIENT IN BED LISTENING TO MUSIC IN STABLE CONDITION. RESTING, BUT NO SLEEP TODAY. WILL ENDORSE TO NEXT SHIFT.
--- NOTE | 2016-09-07 19:15 | NUR ---
MS RN NOTES RECEIVED PT IN BED, AWAKE,A/O X 4 . NO DISTRESS, NO SOB NOTED AT THIS TIME, STABLE. DENIES ANY PAIN OR DISCOMFORT AT THIS TIME. AMBULATORY. ALL NEEDS ATTENDED. CALL LIGHT WITHIN REACH. WILL CONTINUE TO MONITOR.
[2016-09-07 20:00] VITALS: BP 139/82
[2016-09-07 22:00] VITALS: BP 139/82
--- NOTE | 2016-09-08 06:48 | NUR ---
MS RN NOTES PT AWAKE, SITTING UP IN CHAIR. A/O X 4 . NO DISTRESS, NO SOB NOTED AT THIS TIME, STABLE. DENIES ANY PAIN OR DISCOMFORT AT THIS TIME. AMBULATORY. ALL NEEDS ATTENDED. CALL LIGHT WITHIN REACH. WILL ENDORSE TO NEXT SHIFT FOR XIOMY.
--- NOTE | 2016-09-08 07:30 | NUR ---
MS RN NOTES REC'D PT AWAKE AOX3. BREATHING EVEN AND NON LABORED, DENIES ANY PAIN AT THIS TIME. AILL CONTINUE TO MONITOR.
[2016-09-08 08:00] VITALS: BP 121/78
[2016-09-08] MEDS: INVEST MED MK-8189 MISC 3 TAB EA PO SCH (09:14)
[2016-09-08] MEDS: INVEST MED MK-8189 MISC 3 CAP EA PO SCH (09:14)
[2016-09-08] MEDS: HYDROCHLOROTHIAZIDE 25 MG TABLET PO SCH (09:16)
[2016-09-08] MEDS: LORAZEPAM 1 MG TABLET FOR AGITATION PO PRN ×2 (09:16→19:24)
[2016-09-08 16:00] VITALS: BP 123/78
--- NOTE | 2016-09-08 19:00 | NUR ---
MS RN NOTES NEEDS ALL ATTENDED AND ANTICIPATED. ENDORSED TO INCOMING SHIFT FOR CONTINUITY OF CARE
--- NOTE | 2016-09-08 19:55 | NUR ---
MS RN NOTE: PATIENT SITTING UP IN CHAIR, NO ACUTE DISTRESS NOTED. BREATHING EVEN AND UNLABORED, NO SOB NOTED. PATIENT CALM AND COOPERATIVE. BED LOCKED AND IN LOWEST POSITION, CALL LIGHT IN REACH. WILL CONTINUE TO MONITOR.
[2016-09-08 20:00] VITALS: BP 110/65
[2016-09-08] MEDS: ZOLPIDEM TARTRATE 10 MG TABLET PO PRN (23:16)
--- NOTE | 2016-09-08 23:30 | NUR ---
MS RN NOTE: PATIENT REQUEST FOR SLEEPING MEDICATION, AMBIEN 10MG ORAL GIVEN PER MD ORDER. WILL CONTINUE TO MONITOR.
--- NOTE | 2016-09-09 06:20 | NUR ---
MS RN NOTE: PATIENT UP AND READY TO TAKE SHOWER. PATIENT HAD CALM AND COOPERATIVE. INSTRUCTED TO BE CAREFUL WHILE TAKING SHOWER. PATIENT SLEPT ABOUT 6 HOURS. WILL ENDORSE TO DAY NURSE TO CONTINUE WITH PLAN OF CARE.
--- NOTE | 2016-09-09 07:30 | NUR ---
MS RN NOTES RECEIVED PATIENT AWAKE ON BED, AOX3, WATCHING TV. BREATHING EVEN AND NON LABORED. DENIES ANY PAIN OR DISCOMFORT AT THIS TIME. CALL LIGHT WITHIN REACH. WILL CONTINUE TO MONITOR.
--- NOTE | 2016-09-09 09:00 | NUR ---
MS RN NOTES ALL DUE MEDS GIVEN.
[2016-09-09] MEDS: INVEST MED MK-8189 MISC 3 CAP EA PO SCH (09:14)
[2016-09-09] MEDS: LORAZEPAM 1 MG TABLET FOR AGITATION PO PRN ×2 (09:14→17:18)
[2016-09-09] MEDS: INVEST MED MK-8189 MISC 3 TAB EA PO SCH (09:14)
[2016-09-09] MEDS: HYDROCHLOROTHIAZIDE 25 MG TABLET PO SCH (09:16)
[2016-09-09 16:00] VITALS: BP 129/80
--- NOTE | 2016-09-09 18:22 | NUR ---
MS RN NOTES NEEDS ALL ATTENDED AND ANTICIPATED, ENDORSED TO INCOMING SHIFT FOR CONTINUITY OF CARE.
--- NOTE | 2016-09-09 19:30 | NUR ---
RN NOTES RECEIVED PT AWAKE ON BED, CALM, FOLLOW COMMANDS, CONTINUE TO MONITOR
[2016-09-09 20:00] VITALS: BP 146/68
[2016-09-09] MEDS: ZOLPIDEM TARTRATE 10 MG TABLET PO PRN (20:43)
--- NOTE | 2016-09-09 20:44 | NUR ---
RN NOTES PT. ASKED FOR SLEEPIONG PILL- AMBIEN 10 MG PO GIVEN ORDERED, V/S STABLE
--- NOTE | 2016-09-10 06:49 | NUR ---
RN NOTES SLEEPING BUT AROUSABLE, CALM, PLEASANT TO TALK TOO, PT. NEEDS ATTENDED. ENDORSED TO DAYSHIFT NURSE FOR CONTINUITY OF CARE
--- NOTE | 2016-09-10 07:17 | NUR ---
RN NOTES PT. WAS TRYING TO SNEAK OUT. TALKED TO THE PT. THAT HE NEEDS TO FOLLOW THE SCHEDULE TO GO DOWN.. WILL ENDORSED TO DAYSUTFT NURSE TO INFORM DR. SILVA
--- NOTE | 2016-09-10 07:30 | NUR ---
MS/RN Patient received Patient received from supervisor finishing room. No behavior concerns at this time. Will continue to monitor.
[2016-09-10 08:00] VITALS: BP 160/87
[2016-09-10] MEDS: HYDROCHLOROTHIAZIDE 25 MG TABLET PO SCH (08:59)
[2016-09-10] MEDS: INVEST MED MK-8189 MISC 3 TAB EA PO SCH (08:59)
[2016-09-10] MEDS: INVEST MED MK-8189 MISC 3 CAP EA PO SCH (08:59)
[2016-09-10] MEDS: LORAZEPAM 1 MG TABLET FOR AGITATION PO PRN ×2 (09:03→21:02)
--- NOTE | 2016-09-10 09:31 | NUR ---
MS/RN Medications Investigational medications administered as ordered.
--- NOTE | 2016-09-10 13:00 | NUR ---
MS/RN Behavior Remains calm and cooperative, no issues or concerns.
[2016-09-10 16:00] VITALS: BP 135/81
--- NOTE | 2016-09-10 18:18 | NUR ---
MS/RN End note No behavior concerns today, cooperative with plan of care. Will endorse to assistant shift supervisor.
[2016-09-10 20:31] VITALS: BP 127/86
[2016-09-10] MEDS: ZOLPIDEM TARTRATE 10 MG TABLET PO PRN (21:02)
--- NOTE | 2016-09-10 21:15 | NUR ---
MS RN NOTE: PATIENT REQUEST FOR SLEEPING MEDICATION AND ATIVAN, AMBIEN 10MG ORAL AND ATIVAN 1MG ORAL GIVEN PER MD ORDER. WILL CONTINUE TO MONITOR.
--- NOTE | 2016-09-11 06:15 | NUR ---
MS RN NOTE: PATIENT UP AND READY TO TAKE SHOWER. PATIENT HAD CALM AND COOPERATIVE. INSTRUCTED TO BE CAREFUL WHILE TAKING SHOWER. PATIENT SLEPT ABOUT 8 HOURS. WILL ENDORSE TO DAY NURSE TO CONTINUE WITH PLAN OF CARE.
--- NOTE | 2016-09-11 07:30 | NUR ---
MS/RN Patient received Patient received from mold shifter. No needs, will continue to monitor.
[2016-09-11] MEDS: INVEST MED MK-8189 MISC 3 TAB EA PO SCH (07:45)
[2016-09-11] MEDS: INVEST MED MK-8189 MISC 3 CAP EA PO SCH (07:45)
[2016-09-11] MEDS: HYDROCHLOROTHIAZIDE 25 MG TABLET PO SCH ×2 (07:45→09:52)
[2016-09-11 08:00] VITALS: BP 99/68
--- NOTE | 2016-09-11 09:00 | NUR ---
MS/RN Medications Investigational medications administered as ordered.
[2016-09-11] MEDS: LORAZEPAM 1 MG TABLET FOR AGITATION PO PRN ×2 (09:51→21:10)
--- NOTE | 2016-09-11 12:42 | NUR ---
MS/RN Behavior Patient remains calm and cooperative with plan of care.
[2016-09-11 15:47] VITALS: BP 106/89
[2016-09-11 16:00] VITALS: BP 106/89
[2016-09-11] MEDS: IBUPROFEN 200 MG TABLET PO PRN (17:43)
--- NOTE | 2016-09-11 17:54 | NUR ---
MS/RN Headache Patient c/o headache, moltrin 600mg administered as ordered. Will monitor effectiveness
--- NOTE | 2016-09-11 18:19 | NUR ---
MS/RN End note Patient noted to be pacing more in hallways, and responding to auditory hallucinations. No behavior concerns, will endorse to border measurer.
[2016-09-11 19:00] VITALS: BP 120/69
[2016-09-11] MEDS: ZOLPIDEM TARTRATE 10 MG TABLET PO PRN (21:10)
--- NOTE | 2016-09-11 21:10 | NUR ---
MS RN NOTE: PATIENT REQUEST FOR SLEEPING MEDICATION AND ATIVAN, AMBIEN 10MG ORAL AND ATIVAN 1MG ORAL GIVEN PER MD ORDER. WILL CONTINUE TO MONITOR.
--- NOTE | 2016-09-12 06:15 | NUR ---
MS RN NOTE: PATIENT RESTING IN BED, NO ACUTE DISTRESS NOTED. BREATHING EVEN AND UNLABORED, NO SOB NOTED. PATIENT SLEPT ABOUT 8 HOURS. WILL ENDORSE TO DAY NURSE TO CONTINUE WITH PLAN OF CARE.
[2016-09-12 08:00] VITALS: BP 120/82
[2016-09-12] MEDS: HYDROCHLOROTHIAZIDE 25 MG TABLET PO SCH (08:53)
[2016-09-12] MEDS: LORAZEPAM 1 MG TABLET FOR AGITATION PO PRN ×2 (08:53→20:32)
[2016-09-12] MEDS: INVEST MED MK-8189 MISC 3 TAB EA PO SCH (08:53)
[2016-09-12] MEDS: INVEST MED MK-8189 MISC 3 CAP EA PO SCH (08:53)
--- NOTE | 2016-09-12 09:00 | NUR ---
RN MS NOTES PATIENT ALERT AND ORIENTED, NO ACUTE DISTRESS NOTED, NO COMPLAINT OF PAIN AT THIS TIME, CALL LIGHT WITHIN REACH, WILL CONTINUE TO MONITOR.
[2016-09-12] MEDS: MAG HYDROX/AL HYDROX/SIMETH 30 ML UDC PO PRN (11:08)
[2016-09-12 16:00] VITALS: BP 129/81
--- NOTE | 2016-09-12 19:20 | NUR ---
RN MS NOTES NO ACUTE DISTRESS NOTED, PATIENT WILL BE NPO AFTER 9PM.
[2016-09-12 20:00] VITALS: BP 130/82
[2016-09-12] MEDS: ZOLPIDEM TARTRATE 10 MG TABLET PO PRN (20:14)
--- NOTE | 2016-09-12 20:35 | NUR ---
RN NOTES COMPLAINED OF FEELING ANXIOUS- ATIVAN 1MG PO ORDERED, V/S STABLE
--- NOTE | 2016-09-13 06:53 | NUR ---
RN NOTES AWAKE, MORNING CARE RENDERED, CALM AND FOLLOW INSTRUCTIONS, PT. NEEDS ATTENDED
--- NOTE | 2016-09-13 07:30 | NUR ---
MS/RN Patient received Patient received from bindery machine operator. No needs at this time, NPO for blood draw. Will continue to monitor and ensure safety.
[2016-09-13 08:00] VITALS: BP 128/77
--- NOTE | 2016-09-13 08:45 | NUR ---
MS/RN Blood draw Patient's blood drawn by Dr Maria's office staff.
[2016-09-13] MEDS: INVEST MED MK-8189 MISC 3 TAB EA PO SCH (09:39)
[2016-09-13] MEDS: INVEST MED MK-8189 MISC 3 CAP EA PO SCH (09:39)
[2016-09-13] MEDS: HYDROCHLOROTHIAZIDE 25 MG TABLET PO SCH (09:39)
--- NOTE | 2016-09-13 10:35 | NUR ---
MS/RN Vacutainemilie While completing rounds, noted that patient still had butterfly needle and vacu-tainer still in place. Per patient, Dr Maria's staff had instructed patient to leave the line in place as further blood draw was scheduled for 1pm and it would prevent patient having to be stuck for second time. Also noted that the tubing from butterfly to vacutainer was full of blood. Instructed patient to try and keep arm as still as possible. Will place call to Dr Maria's office.
--- NOTE | 2016-09-13 10:43 | NUR ---
MS/RN Call placed Call placed to Salo at Dr Maria's office regarding butterfly left in patient.
[2016-09-13] MEDS: LORAZEPAM 1 MG TABLET FOR AGITATION PO PRN ×2 (13:43→19:49)
[2016-09-13 16:00] VITALS: BP 120/70
--- NOTE | 2016-09-13 18:19 | NUR ---
MS/RN End note No changes at this time, patient remains calm and cooperative. All medications taken as ordered. Will endorse to shift nurse manager.
--- NOTE | 2016-09-13 19:30 | NUR ---
RN NOTES RECEIVED PATIENT, AWAKE ON BED, CALM BUT NOT HAPPY , PT STATED THAT THEY RE GOING TO DRAW BLOOD ON HIM AGAIN, EXPLAINED THE BENEFITS OF THIS PROCEDURE, PT JUST LISTENING, CALL LIGHT WITHIN REACH, SIDERAILS UPX2 CONTINUE TO MONITOR
--- NOTE | 2016-09-13 19:51 | NUR ---
RN NOTES PT. IS ANXIOUS BECAUSE THERE DRAWING BLOOD AGAIN FOR THE 3RD TIME TODAY- ATIVAN 1MG PO GIVEN ORDERED, V/S STABLE
[2016-09-13 20:00] VITALS: BP 141/85
[2016-09-13 20:04] VITALS: BP 141/85
[2016-09-13] MEDS: ZOLPIDEM TARTRATE 10 MG TABLET PO PRN (20:52)
--- NOTE | 2016-09-13 20:53 | NUR ---
RN NOTES PT. ASKED FOR SLEEPING PILL- AMBIEN 10MG PO GIVEN ORDERED, V/S STABLE
[2016-09-13] MEDS ORDERED: LORAZEPAM 1 MG TABLET FOR INSOMNIA PO PRN (22:00)
--- NOTE | 2016-09-14 06:10 | NUR ---
RN NOTES AWAKE, TOOK A SHOWER, CALM AND COOPERATIVE
--- NOTE | 2016-09-14 06:52 | NUR ---
RN NOTES AWAKE, CALM AND COOPERATIVE, PT. NEEDS ATTENDED. ENDORSED TO DAYSHIFT NURSE FOR CONTINUITY OF CARE
[2016-09-14 07:52] VITALS: BP 130/69
[2016-09-14 08:00] VITALS: BP 130/69
--- NOTE | 2016-09-14 08:00 | NUR ---
MS 2 RN AM CLINICAL TRIALS NOTES RECEIVED PATIENT, AWAKE ON BED, CALM IN CHAIR.CALL LIGHT WITHIN REACH, SIDERAILS UPX2 COMPLIANT WITH MEDS.DENIES ANY PAIN OR DISTRESS.CONTINUE TO MONITOR
[2016-09-14] MEDS: HYDROCHLOROTHIAZIDE 25 MG TABLET PO SCH (08:43)
[2016-09-14] MEDS: INVEST MED MK-8189 MISC 3 CAP EA PO SCH (08:43)
[2016-09-14] MEDS: LORAZEPAM 1 MG TABLET FOR AGITATION PO PRN ×2 (08:43→15:42)
[2016-09-14] MEDS: INVEST MED MK-8189 MISC 3 TAB EA PO SCH (08:43)
[2016-09-14] MEDS: ACETAMINOPHEN ES 500 MG TABLET PO PRN (15:44)
[2016-09-14 16:00] VITALS: BP 127/71
--- NOTE | 2016-09-14 16:30 | NUR ---
PT C/O HEADACHE -TYLENOL ES 1000 MG PO GIVEN WITH EFFECTIVE RESULT.PT SMOKED WITH CO-PT ACCOMPANIED BY NURSE DOWNSTAIRS.
--- NOTE | 2016-09-14 18:00 | NUR ---
INSTRUCTED PT NOT TO GO DOWN ON THEIR OWN-THEY NEED TO BE ACCOMPANIED BY NURSE WHILE THEY ARE ON CLINICAL TRIAL.PT VERBALIZED UNDERSTANDING OF INSTRUCTIONS GIVEN.
--- NOTE | 2016-09-14 19:50 | NUR ---
MS RN NOTES SITTING INSIDE HIS ROOM WATCHING TV PROGRAM,CALM,ABLE TO FOLLOW INSTRUCTION.WILL CONTINUE TO MONITOR BEHAVIOR
[2016-09-14 20:00] VITALS: BP 136/91
--- NOTE | 2016-09-14 20:20 | NUR ---
MS RN NOTES WENT DOWN TO SMOKE WITH TERESITA GOULD
[2016-09-14] MEDS: ZOLPIDEM TARTRATE 10 MG TABLET PO PRN (20:58)
--- NOTE | 2016-09-14 20:58 | NUR ---
MS RN NOTES MEDICATED WITH AMBIEN 10MG PO PER PATIENT REQUEST.
--- NOTE | 2016-09-15 02:00 | NUR ---
MS RN NOTES SLEEPING AT THIS TIME
--- NOTE | 2016-09-15 06:24 | NUR ---
MS RN NOTES NO CHANGE IN STATUS,FOLLOW INSTRUCTIONS.WILL CONTINUE WITH CLINICAL STUDY PROGRAM.NEEDS ATTENDED.ENDORSED
[2016-09-15 07:53] VITALS: BP 126/75
[2016-09-15 08:00] VITALS: BP 126/75
[2016-09-15] MEDS: INVEST MED MK-8189 MISC 3 TAB EA PO SCH (10:02)
[2016-09-15] MEDS: HYDROCHLOROTHIAZIDE 25 MG TABLET PO SCH (10:02)
[2016-09-15] MEDS: INVEST MED MK-8189 MISC 3 CAP EA PO SCH (10:02)
[2016-09-15] MEDS: LORAZEPAM 1 MG TABLET FOR AGITATION PO PRN ×2 (10:17→20:51)
[2016-09-15 15:57] VITALS: BP 126/74
[2016-09-15 16:00] VITALS: BP 126/74
[2016-09-15] MEDS: IBUPROFEN 200 MG TABLET PO PRN (17:54)
--- NOTE | 2016-09-15 18:17 | NUR ---
MS RN NOTES PT IN THE HALLWAY TALKING TO A FRIEND IN THE NEXT ROOM.CALM,FOLLOW INSTRUCTIONS.WILL CONTINUE TO MONITOR BEHAVIOR
--- NOTE | 2016-09-15 19:35 | NUR ---
MS RN NOTES ON BED WATCHING TV PROGRAM,CALM AND FOLLOW INSTRUCTION
[2016-09-15 20:00] VITALS: BP 128/80
--- NOTE | 2016-09-15 20:30 | NUR ---
MS RN NOTES WENT DOWN TO SMOKE ACCOMPANIED BY TERESITA GOULD
--- NOTE | 2016-09-15 20:45 | NUR ---
MS RN NOTES BACK FROM SMOKING AND ASKED FOR AMBIEN 10MG PO FOR SLEEP AND ATIVAN 1MG PO PER REPATIENT REQUEST
[2016-09-15] MEDS: ZOLPIDEM TARTRATE 10 MG TABLET PO PRN (20:52)
[2016-09-15 22:00] VITALS: BP 128/80
--- NOTE | 2016-09-16 06:34 | NUR ---
MS RN NOTES SLEPT 7 HOURS AT NIGHT,CALM,FOLLOWS DIRECTION
--- NOTE | 2016-09-16 07:30 | NUR ---
MS/RN Patient received Patient received from management lecturer. No needs at this time, remains calm and cooperative with plan of care. Will continue to monitor and ensure safety.
[2016-09-16] MEDS: INVEST MED MK-8189 MISC 3 TAB EA PO SCH (07:53)
[2016-09-16] MEDS: HYDROCHLOROTHIAZIDE 25 MG TABLET PO SCH (07:53)
[2016-09-16] MEDS: INVEST MED MK-8189 MISC 3 CAP EA PO SCH (07:53)
[2016-09-16] MEDS: LORAZEPAM 1 MG TABLET FOR AGITATION PO PRN ×2 (07:53→20:11)
--- NOTE | 2016-09-16 08:00 | NUR ---
MS/RN Ativan 1mg ativan administered as ordered.
[2016-09-16 08:27] VITALS: BP 115/75
--- NOTE | 2016-09-16 08:30 | NUR ---
MS/RN Medications Morning medications (investigational) administered as ordered.
[2016-09-16 08:36] VITALS: BP 112/77
[2016-09-16 16:11] VITALS: BP 119/69
[2016-09-16 17:12] VITALS: BP 119/69
--- NOTE | 2016-09-16 18:17 | NUR ---
MS/RN End note Calm and cooperative throughout shift. No behavior concerns, compliant with plan of care. Will endorse to substitute bus driver.
[2016-09-16 19:54] VITALS: BP 112/91
--- NOTE | 2016-09-16 19:55 | NUR ---
PATIENT IN BED, PLAYING WITH CELLPHONE, NO AGITATION, NO BEHAVIOR DISTURBANCE, KEPT SAFE AND COMFORTABLE, CALL LIGHT WITHIN REACH.
[2016-09-16 20:00] VITALS: BP 112/91
[2016-09-16] MEDS: ZOLPIDEM TARTRATE 10 MG TABLET PO PRN (21:11)
--- NOTE | 2016-09-17 01:00 | NUR ---
PATIENT RESTING COMFORTABLY IN BED, PATIENT TURNED OVER TO [facility] FOR CONTINUITY OF CARE
--- NOTE | 2016-09-17 01:05 | NUR ---
RN NOTES PT ASLEEP IN BED , BREATHING REGULAR AND UNLABORED, NO SOB, NOT IN DISTRESS, TOLERATING ROOM AIR. KEPT COMFORTABLE AND ATTENDED. BED LOW, LOCKED WITH CALL LIGHT WITH IN REACH. WILL CONTINUE TO MONITOR PT..
--- NOTE | 2016-09-17 06:18 | NUR ---
RN NOTES PT AWAKE, VITAL SIGNS STABLE, NO COMPLAIN OF PAIN AND DISCOMFORT. SLEEP WELL, PT QUIET, CALM AND COOPERATIVE. NO UNTOWARD BEHAVIOR NOTED. WILL ENDORSE TO MORNING RN FOR CONTINUITY OF CARE.
--- NOTE | 2016-09-17 07:30 | NUR ---
MS/RN Patient received Patient received from dairy husbandry worker. Ibuprofen 600mg given for headache, will monitor effects. No further needs at this time, call light within reach, will continue to monitor and ensure safety.
[2016-09-17 08:00] VITALS: BP 117/79
[2016-09-17] MEDS: LORAZEPAM 1 MG TABLET FOR AGITATION PO PRN ×2 (08:11→19:56)
[2016-09-17] MEDS: HYDROCHLOROTHIAZIDE 25 MG TABLET PO SCH (08:11)
[2016-09-17] MEDS: IBUPROFEN 200 MG TABLET PO PRN (08:11)
--- NOTE | 2016-09-17 08:15 | NUR ---
MS/RN Ativan 1mg ativan given at patient's request for anxiety.
--- NOTE | 2016-09-17 09:00 | NUR ---
MS/RN Medications Morning medications administered as ordered.
[2016-09-17] MEDS: INVEST MED MK-8189 MISC 3 CAP EA PO SCH (09:17)
[2016-09-17] MEDS: INVEST MED MK-8189 MISC 3 TAB EA PO SCH (09:17)
[2016-09-17 16:00] VITALS: BP 114/61
--- NOTE | 2016-09-17 18:40 | NUR ---
MS/RN End note Remains cooperative with plan of care, no concerns at this time. Will endorse to manager shift.
--- NOTE | 2016-09-17 19:30 | NUR ---
MS RN NOTE RECEIVED PATIENT AWAKE AND ALERT IN CHAIR. COOPERATIVE WITH CARE. WILL CONTINUE TO MONITOR.
[2016-09-17 20:21] VITALS: BP 137/86
[2016-09-17] MEDS: ZOLPIDEM TARTRATE 10 MG TABLET PO PRN (20:42)
[2016-09-18 04:35] VITALS: BP 137/86
--- NOTE | 2016-09-18 06:22 | NUR ---
MS RN NOTE PATIENT STABLE. WILL ENDORSE TO DAY SHIFT FOR XIOMY.
--- NOTE | 2016-09-18 07:10 | NUR ---
MS RN NOTES RECEIVED PATIENT SITTING IN CHAIR BY BEDSIDE. ALERT AND ORIENTED X4, DENIES ANY PAIN OR DISCOMFORTS AT THIS TIME. PATIENT ON CLINICAL TRIAL. ON ROOM AIR BREATHING UNLABORED. EMPHASIZED SMOKING TIME AND COUNSELED TO INFORMED STAFF WHEN GOING OUT TO SMOKE. CALL LIGHT WITHIN REACH OF PATIENT. WILL CONTINUE TO MONITOR ACCORDINGLY.
[2016-09-18 08:00] VITALS: BP 130/73
[2016-09-18] MEDS: HYDROCHLOROTHIAZIDE 25 MG TABLET PO SCH (08:58)
[2016-09-18] MEDS: INVEST MED MK-8189 MISC 3 TAB EA PO SCH (08:59)
[2016-09-18] MEDS: INVEST MED MK-8189 MISC 3 CAP EA PO SCH (08:59)
[2016-09-18] MEDS: LORAZEPAM 1 MG TABLET FOR AGITATION PO PRN ×2 (09:05→20:39)
--- NOTE | 2016-09-18 09:05 | NUR ---
MS RN NOTES PATIENT GIVEN ATIVAN 1MG FOR ANXIETY. WILL CONTINUE TO MONITOR PT'S BEHAVIOR AND STATUS.
[2016-09-18 16:00] VITALS: BP 121/71
--- NOTE | 2016-09-18 18:41 | NUR ---
MS RN CLOSING NOTES PATIENT IN HIS ROOM ALERT AND ORIENTED X4, NO SIGNIFICANT CHANGES NOTED THROUGHOUT SHIFT. WALKS AROUND AT TIMES ON THE HALLWAY. NO COMPLAINTS OF PAIN OR DISCOMFORTS. PATIENT CONTINUES ON CLINICAL TRIAL. ON ROOM AIR BREATHING UNLABORED. SMOKES OUTSIDE UNDER SUPERVISION OF STAFF. CALL LIGHT WITHIN REACH OF PATIENT. WILL ENDORSED TO CHEMIST INORGANIC FOR XIOMY.
--- NOTE | 2016-09-18 19:30 | NUR ---
MS RN NOTE RECEIVED PATIENT AWAKE AND ALERT IN CHAIR. COOPERATIVE WITH CARE. WILL CONTINUE TO MONITOR.
[2016-09-18 20:39] VITALS: BP 118/82
[2016-09-18 22:00] VITALS: BP 118/82
--- NOTE | 2016-09-18 23:00 | NUR ---
MS RN NOTE PATIENT STABLE. WILL CONTINUE TO MONITOR.
--- NOTE | 2016-09-19 00:20 | NUR ---
MS RN NOTE PATIENT AND ALL BELONGINGS, INCLUDING LINENS WERE GONE WHEN I DID MY ROUNDS. PATIENT WAS LAST SEEN IN HIS ROOM AT 0000. THE BED WAS STRIPPED. CHECKED THROUGHOUT UNIT FOR PATIENT. NOTIFIED SECURITY. SECURITY SAID THAT HE SAW PATIENT WITH ALL OF HIS BELONGINGS EXIT THE HOSPITAL APPROXIMATELY 30 MINUTES AGO IN A RED VEHICLE. SECURITY FAILED TO NOTIFY NURSING STAFF. NURSING CURTAIN SUPERVISOR NOTIFIED RIGHT AWAY. WILL NOTIFY MD EARLY IN AM. CALLED PATIENT ON HIS CELL PHONE, WITH NO ANSWER. PATIENT ELOPED.
--- NOTE | 2016-09-19 04:54 | NUR ---
MS RN NOTE INFORMED DR. SILVA THAT PATIENT ELOPED.
--- NOTE | 2016-09-19 05:26 | NUR ---
MS RN NOTE UNABLE TO COMPLETE INCIDENT REPORT AT THIS TIME. INTRANET IS DOWN. WILL TRY AGAIN LATER.
--- NOTE | 2016-09-19 05:26 | NUR ---
MS RN NOTE UNABLE TO COMPLETE INCIDENT REPORT AT THIS TIME. INTRANET IS DOWN. WILL TRY AGAIN LATER.
[2016-09-20] MEDS ORDERED: LORAZEPAM 1 MG TABLET FOR AGITATION PO PRN (14:00)
[2016-09-20] MEDS ORDERED: LORAZEPAM 1 MG TABLET FOR INSOMNIA PO PRN (22:00)
[2016-09-26] MEDS ORDERED: LORAZEPAM 1 MG TABLET FOR AGITATION PO PRN (14:00)
[2016-09-26] MEDS ORDERED: LORAZEPAM 1 MG TABLET FOR INSOMNIA PO PRN (22:00)
== END 2016-09-19 00:20 | disposition left against medical advice (07) | DRG 951 ==
LOC: MEDSG2 14:31
PROVIDERS: ADMIT Psychiatry & Neurology Psychiatry; ATTEND Psychiatry & Neurology Psychiatry
DX: Z00.6 Encounter for examination for normal comparison and control in clinical research program (principal); F20.0 Paranoid schizophrenia; I10 Essential (primary) hypertension; Z79.899 Other long term (current) drug therapy
CPT/HCPCS: Q0161; Z7610

== ENCOUNTER 2017-10-19 08:57 | Emergency (ER) | payer OTHER ==
[~2017-10-19] VITALS: Ht 188 cm; Wt 99.8 kg
--- NOTE | 2017-10-19 09:06 | NUR ---
SELF PRESENTS TO ED: PARANOID, HEARING VOICES. WANTS TO BE ADMITTED TO [facility]
--- NOTE | 2017-10-19 09:24 | NUR ---
URINE SAMPLE COLLECTED SENT TO LAB
[2017-10-19 09:32] LABS: BASOPHILS % (AUTO) 0.5 % (0.0-2.0); EOSINOPHILS % (AUTO) 1.2 % (0.0-6.0); HEMATOCRIT 50 % (39-51); HEMOGLOBIN 16.8 g/dL (13.5-17.5); LYMPHOCYTES # (AUTO) 2.2 /CMM (0.8-4.8); LYMPHOCYTES % (AUTO) 25.8 % (20.0-44.0); MEAN CORPUSCULAR HGB CONC 33 g/dl (31.0-36.0); MEAN CORPUSCULAR VOLUME 90 fL (80-96); MONOCYTES # (AUTO) 0.8 /CMM (0.1-1.30); MONOCYTES % (AUTO) 9.5 % (2.0-12.0); NEUTROPHILS # (AUTO) 5.3 /CMM (1.8-8.9); PLATELET COUNT (AUTO) 221 /CMM (150-450); RDW COEFFICIENT OF VARIATION 13.4 (11.5-15.0); RED BLOOD CELL COUNT(AUTO) 5.62 MIL/uL (4.5-6.0); WHITE BLOOD COUNT (AUTO) 8.4 K/uL (4.3-11.0)
[2017-10-19 09:44] LABS: ALANINE AMINOTRANSFERASE 20 U/L (12-78); ALBUMIN 4.4 g/dL (3.4-5.0); ALCOHOL, BLOOD < 3 mg/dL (0-0); ALKALINE PHOSPHATASE 66 U/L (46-116); ASPARTATE AMINOTRANSFERASE 16 U/L (15-37); BILIRUBIN,DIRECT 0.1 mg/dL (0.0-0.2); CALCIUM, SERUM 9.6 mg/dL (8.5-10.1); CARBON DIOXIDE 26 mmol/L (21-32); CHLORIDE 102 mmol/L (98-107); CREATININE 1.3 mg/dL (0.6-1.3); GLUCOSE 93 mg/dL (74-106); POTASSIUM 3.8 mmol/L (3.5-5.1); SODIUM SERUM 139 mmol/L (136-145); TOTAL PROTEIN, SERUM 8.2 g/dL (6.4-8.2); UREA NITROGEN, BLOOD 14 mg/dL (7-18)
[2017-10-19 09:49] LABS: APPEARANCE,URINE CLEAR (CLEAR); BILIRUBIN,URINE NEGATIVE (NEGATIVE); BLOOD, URINE NEGATIVE Ery/uL (NEGATIVE); COLOR,URINE YELLOW (YELLOW); KETONES,URINE NEGATIVE (NEGATIVE); LEUKOCYTE ESTERASE ,URINE NEGATIVE (NEGATIVE); NITRITE, URINE NEGATIVE (NEGATIVE); PROTEIN,URINE NEGATIVE (NEGATIVE); UGLUCOSE NEGATIVE (NEGATIVE); UROBILINOGEN,URINE 0.2 EU/dL (0.2)
[2017-10-19 09:55] LABS: ACETAMINOPHEN 0 ug/ml (10-30)
--- NOTE | 2017-10-19 12:07 | NUR ---
CALLED IN FLIGHT REFUELING SYSTEM REPAIRER ESTEPHANIE FOR PSYCH EVAL AND LEFT A VOICEMAIL
[2017-10-19 14:09] VITALS: BP 153/75
--- NOTE | 2017-10-19 14:09 | NUR ---
Patient eloped from facility. ER MD notified.
== END 2017-10-19 14:09 | disposition left against medical advice (07) ==
LOC: ER 09:01
DX: F20.9 Schizophrenia, unspecified (principal); I10 Essential (primary) hypertension
CPT/HCPCS: 36415; 80048-TC; 80076-TC; 80305; 81000-TC; 85025-TC; A4606; G0480; Z7610

== ENCOUNTER 2017-11-26 15:58 | Emergency (ER) | payer OTHER ==
[~2017-11-26] VITALS: Ht 188 cm; Wt 97.5 kg
[2017-11-26 16:10] VITALS: BP 152/84
--- NOTE | 2017-11-26 16:10 | NUR ---
A/OX3, AMBULATORY IN A STEADY GAIT TO ED BED 12. C/O HOMICIDAL IDEATION S/P DRUG USE LAST NIGHT. VSS NAD WILL CONT TO MONITOR
[2017-11-26 16:26] LABS: BASOPHILS # (AUTO) 0.4 /CMM (0.0-0.2); BASOPHILS % (AUTO) 3.8 % (0.0-2.0); EOSINOPHILS % (AUTO) 0.7 % (0.0-6.0); HEMATOCRIT 49 % (39-51); HEMOGLOBIN 17.3 g/dL (13.5-17.5); LYMPHOCYTES # (AUTO) 2.8 /CMM (0.8-4.8); LYMPHOCYTES % (AUTO) 29.8 % (20.0-44.0); MEAN CORPUSCULAR HEMOGLOBIN 30 PG (26.0-33.0); MEAN CORPUSCULAR HGB CONC 35 g/dl (31.0-36.0); MEAN CORPUSCULAR VOLUME 86 fL (80-96); MONOCYTES # (AUTO) 1.1 /CMM (0.1-1.30); MONOCYTES % (AUTO) 11.9 % (2.0-12.0); NEUTROPHILS % (AUTO) 53.8 % (43.0-81.0); PLATELET COUNT (AUTO) 229 /CMM (150-450); RDW COEFFICIENT OF VARIATION 12.6 (11.5-15.0); RED BLOOD CELL COUNT(AUTO) 5.71 MIL/uL (4.5-6.0); WHITE BLOOD COUNT (AUTO) 9.4 K/uL (4.3-11.0)
[2017-11-26 16:34] LABS: CARBON DIOXIDE 27 mmol/L (21-32); CHLORIDE 101 mmol/L (98-107); CREATININE 1.4 mg/dL (0.6-1.3); GLUCOSE 110 mg/dL (74-106); POTASSIUM 3.7 mmol/L (3.5-5.1); SODIUM SERUM 137 mmol/L (136-145); UREA NITROGEN, BLOOD 18 mg/dL (7-18)
[2017-11-26 16:39] LABS: ALANINE AMINOTRANSFERASE 27 U/L (12-78); ALBUMIN 4.6 g/dL (3.4-5.0); ALKALINE PHOSPHATASE 75 U/L (46-116); ASPARTATE AMINOTRANSFERASE 16 U/L (15-37); BILIRUBIN,DIRECT 0.1 mg/dL (0.0-0.2); BILIRUBIN,TOTAL 0.6 mg/dL (0.2-1.0); SALICYLATE 3.2 mg/dL (2.8-20.0); TOTAL PROTEIN, SERUM 8.7 g/dL (6.4-8.2)
[2017-11-26 16:40] LABS: ACETAMINOPHEN < 2 ug/ml (10-30); ALCOHOL, BLOOD < 3 mg/dL (0-0)
--- NOTE | 2017-11-26 17:05 | NUR ---
CALLED [facility] [employer] FRONT END DEVELOPER ETA 1 HR.
--- NOTE | 2017-11-26 17:26 | NUR ---
SPOKE TO [facility] NON EMERGENCY LINE, NOTIFIED THEM THAT THE PT WAS HOMICIDAL AND ELOPED. WAS NOTIFIED THAT THEY WOULD BE SENDING AN OFFICER OVER TO THE ER.
--- NOTE | 2017-11-26 18:12 | NUR ---
OFFICER VALENTIN CAME TO ASK INFORMATION REGARDING THE PATIENT.
== END 2017-11-26 18:17 | disposition left against medical advice (07) ==
LOC: ER 16:00
DX: F23 Brief psychotic disorder (principal); R45.850 Homicidal ideations; F20.9 Schizophrenia, unspecified; I10 Essential (primary) hypertension
CPT/HCPCS: 36415; 80048-TC; 80076-TC; 85025-TC; A4606; G0480; Z7610

== ENCOUNTER 2018-09-08 12:11 | Inpatient (IN) | payer OTHER ==
[~2018-09-08] VITALS: Ht 188 cm; Wt 129.3 kg
--- NOTE | 2018-09-08 13:00 | NUR ---
RN ADMITTING NOTES RECEIVED PATIENT FROM DR VIRK OFFICE. AMBULATORY TO ROOM 208 ADMITTED FOR SCHIZOPHRENIA WITH ACUTE EXACERBATION OF PSYCHOSIS;MEDICALLY STABLE ADMITTED FOR STUDY.PATIENT A/O X3 NO SIGNS OR SYMPTOMS OF RESPIRATORY DISTRESS OR ACUTE PAIN C/O HEADACHE TYLENOL GIVEN WILL F/U. WELL NOURISHED MALE SKIN INTACT. VS T 98.1 HR 85 RR 18 O2 98% ON ROOM AIR BP 117/74. NO IV ACCESS ORIENTED TO ROOM AND SURROUNDINGS AND CALL SYSTEM OBTAINED ORDERS AND ALL FOLLOWED THROUGH. BED IN LOW POSITION SAFETY PRECAUTIONS IN PLACE CALL LIGHT WITHIN REACH. WILL CONT TO MONITOR
[2018-09-08] MEDS ORDERED: MAG HYDROX/AL HYDROX/SIMETH 30 ML UDC PO PRN (13:30)
[2018-09-08] MEDS ORDERED: MAGNESIUM HYDROXIDE 30 ML UDC PO PRN (13:30)
[2018-09-08] MEDS ORDERED: IBUPROFEN 200 MG TABLET PO PRN (13:30)
--- NOTE | 2018-09-08 13:30 | NUR ---
RN MS NOTES PT OWN MEDS SENT TO PHARMACY
[2018-09-08] MEDS: ACETAMINOPHEN ES 500 MG TABLET PO PRN (14:09)
[2018-09-08 14:12] VITALS: BP 117/74
[2018-09-08 14:16] VITALS: BP 117/74
[2018-09-08] MEDS ORDERED: HYDR25TA4 PO (15:47)
[2018-09-08] MEDS ORDERED: MIRT30TA7 PO (15:47)
[2018-09-08] MEDS ORDERED: OLAN15TA3 PO (15:47)
[2018-09-08 16:00] VITALS: BP 121/71
--- NOTE | 2018-09-08 19:30 | NUR ---
RECEIVED PATIENT IN BED AWAKE. AO X 3, ABLE TO MAKE NEEDS KNOWN. NO ACUTE DISTRESS NOTED. DENIES ANY PAIN AT THIS TIME. NO IV SITE. SAFETY REMINDERS GIVEN. ON LOW BED WITH BILATERAL UPPER SIDE RAILS UP. WILL CONTINUE TO MONITOR.
--- NOTE | 2018-09-08 19:30 | NUR ---
RN MS CLOSING NOTES NO CHANGES THROUGHOUT THE SHIFT PATIENT CALM AND COOPERATIVE. NO SIGNS OR SYMPTOMS OF RESPIRATORY DISTRESS OR ACUTE PAIN.ABLE TO MAKE NEEDS KNOWN AND ALL MET BY STAFF.SAFETY PRECAUTIONS IN PLACE BED IN LOW POSITION CALL LIGHT WITHIN REACH.
[2018-09-08 19:50] VITALS: BP 131/80
[2018-09-08 20:00] VITALS: BP 131/80
[2018-09-08] MEDS: MIRTAZAPINE 30 MG TABLET PO SCH (22:20)
[2018-09-08] MEDS: OLANZAPINE 15 MG PO SCH (22:20)
--- NOTE | 2018-09-09 06:30 | NUR ---
PATIENT ASLEEP, EASILY AROUSABLE. RESPIRATIONS EVEN. NO SIGNS OF PAIN NOTED. DUE MEDS GIVEN WITH NO ASE NOTED. NEEDS ATTENDED. SAFETY PRECAUTIONS AND COMFORT MEASURES IN PLACE. WILL GIVE REPORT TO DAY SHIFT FOR CONTINUITY OF CARE.
[2018-09-09 08:00] VITALS: BP 113/74
--- NOTE | 2018-09-09 08:00 | NUR ---
MS 2 CLINICAL TRIAL NOTES RECEIVED PATIENT IN BED AWAKE. AO X 3, ABLE TO MAKE NEEDS KNOWN. NO ACUTE DISTRESS NOTED. DENIES ANY PAIN AT THIS TIME. NO IV SITE. SAFETY REMINDERS GIVEN. ON LOW BED WITH BILATERAL UPPER SIDE RAILS UP. WILL CONTINUE TO MONITOR.
[2018-09-09] MEDS: HYDROCHLOROTHIAZIDE 25 MG PO SCH (08:08)
[2018-09-09 16:00] VITALS: BP 117/78
--- NOTE | 2018-09-09 18:00 | NUR ---
PT RESTING IN BED AWAITING TO BE ACCOMPANIED TO SMOKE OUTSIDE.DENIES ANY PAIN OR DISTRESS.CALL LIGHT PLACED WITHIN REACH.
--- NOTE | 2018-09-09 19:25 | NUR ---
MS RN OPENING NOTES: RECEIVED PT ON ROOM AIR AND IS TOLERATING WELL. NO IV NOTED AT THIS TIME. NO SOB. PT AWAITING TO GO FOR SMOKE BREAK. BED KEPT IN LOW, LOCKED POSITION, AND SIDE RAILS X 2UP. WILL CONTINUE TO MONITOR PT.
[2018-09-09 20:00] VITALS: BP 117/71
[2018-09-09 20:20] VITALS: BP 117/71
--- NOTE | 2018-09-09 20:45 | NUR ---
MS RN NOTES: PT WENT OUT FOR A SMOKE BREAK WITH THERESA LO.
--- NOTE | 2018-09-09 20:57 | NUR ---
MS RN NOTES: PT BACK FROM SMOKE BREAK.
[2018-09-09] MEDS: OLANZAPINE 15 MG PO SCH (21:02)
[2018-09-09] MEDS: MIRTAZAPINE 30 MG TABLET PO SCH (21:03)
--- NOTE | 2018-09-10 07:03 | NUR ---
MS RN CLOSING NOTES: ALL NEEDS WERE ATTENDED AND ANTICIPATED FOR. PT ASLEEP AT THIS TIME AND RESTING COMFORTABLY. PT EASILY AROUSABLE. NO SOB NOTED. NO S/S OF DISTRESS. NO IV NOTED. BED KEPT IN LOW AND LOCKED POSITION. WILL ENDORSE TO AM NURSE FOR XIOMY.
[2018-09-10 08:00] VITALS: BP 140/83
[2018-09-10] MEDS: HYDROCHLOROTHIAZIDE 25 MG PO SCH (09:18)
[2018-09-10] MEDS: LORAZEPAM 1 MG TABLET FOR AGITATION PO PRN (09:22)
[2018-09-10 11:38] VITALS: BP 140/83
[2018-09-10 16:00] VITALS: BP 129/94
--- NOTE | 2018-09-10 18:00 | NUR ---
PT COMPLIANT WITH MEDS AND TX.DENIES ANY PAIN OR DISTRESS.
[2018-09-10 19:57] VITALS: BP 120/87
--- NOTE | 2018-09-10 20:01 | NUR ---
RN MS OPENING NOTES RECEIVED PATIENT IN BED AWAKE, ALERT AND ORIENTED X4, VERBALLY RESPONSIVE, ABLE TO MAKE NEEDS KNOWN. BREATHING EVEN AND UNLABORED. NO SOB NOTED. TOLERATING ROOM AIR. NO COMPLAINTS OF PAIN OR DISCOMFORT. NO FACIAL GRIMACING. NO IV ACCESS PATIENT IS A CLINICAL TRIAL PATIENT. SKIN DRY AND WARM TO TOUCH. AFEBRILE. ALL OTHER NEEDS MET. SAFETY MEASURES IN PLACE. CALL LIGHT WITHIN REACH. WILL CONTINUE TO MONITOR.
--- NOTE | 2018-09-10 20:25 | NUR ---
RN MS NOTES PATIENT WENT DOWN WITH TERESITA XAVIER FOR A SMOKE BREAK.
--- NOTE | 2018-09-10 20:40 | NUR ---
RN MS NOTES PATIENT BACK IN UNIT WITH TERESITA XAVIER AFTER SMOKE BREAK.
[2018-09-10] MEDS: OLANZAPINE 15 MG PO SCH (21:20)
[2018-09-10] MEDS: MIRTAZAPINE 30 MG TABLET PO SCH (21:20)
--- NOTE | 2018-09-11 06:56 | NUR ---
RN MS CLOSING NOTES PATIENT RESTING IN BED. NOT IN ANY DISTRESS. NO ACUTE CHANGES THROUGHOUT SHIFT. NO COMPLAINTS OF PAIN OR DISCOMFORT. NO FACIAL GRIMACING. NO IV ACCESS PATIENT IS A CLINICAL TRIAL PATIENT. SKIN DRY AND WARM TO TOUCH. AFEBRILE. ALL OTHER NEEDS MET. SAFETY MEASURES IN PLACE. CALL LIGHT WITHIN REACH. WILL ENDORSE TO ONCOMING NURSE FOR XIOMY.
[2018-09-11 08:00] VITALS: BP 143/73
--- NOTE | 2018-09-11 08:00 | NUR ---
RN MS OPENING NOTES RECEIVED PATIENT IN BED AWAKE, ALERT AND ORIENTED X4, VERBALLY RESPONSIVE, ABLE TO MAKE NEEDS KNOWN. BREATHING EVEN AND UNLABORED. NO SOB NOTED. TOLERATING ROOM AIR. NO COMPLAINTS OF PAIN OR DISCOMFORT. NO FACIAL GRIMACING. NO IV ACCESS PATIENT IS A CLINICAL TRIAL PATIENT. SKIN DRY AND WARM TO TOUCH. AFEBRILE. SAFETY MEASURES IN PLACE. CALL LIGHT WITHIN REACH. WILL CONTINUE TO MONITOR.
[2018-09-11] MEDS: HYDROCHLOROTHIAZIDE 25 MG PO SCH (08:23)
--- NOTE | 2018-09-11 13:02 | NUR ---
RN NOTES PATIENT PICKED UP BY " NITIN" FROM DR SILVA OFFICE TO ACCOMPANY PATIENT FOR RECYCLING COORDINATOR VISIT AT 1300.
[2018-09-11 16:00] VITALS: BP 105/65
--- NOTE | 2018-09-11 16:04 | NUR ---
RN NOTES PT RETURNED TO UNIT AMBULATORY ACCOMPANIED BY "NITIN" FROM BURIAL VAULT SETTER VISIT. NO ACUTE SIGNS OF DISTRESS NOTED. WILL CONTINUE TO MONITOR.
[2018-09-11] MEDS: LORAZEPAM 1 MG TABLET FOR AGITATION PO PRN (18:34)
--- NOTE | 2018-09-11 18:36 | NUR ---
RN NOTES PT NOTED ANXIOUS AND ASKED FOR ATIVAN. PRN ATIVAN 1MG PO GIVEN AT 1834. WILL CONTINUE TO MONITOR PT.
--- NOTE | 2018-09-11 18:49 | NUR ---
MS RN CLOSING NOTES PATIENT AWAKE AND WATCHING TV IN BED. A/O X4. VERBALLY RESPONSIVE AND AMBULATORY. NO ACUTE CHANGES THROUGHOUT SHIFT. NO INAPPROPRIATE BEHAVIOR EXHIBITED. SKIN DRY AND WARM TO TOUCH. AFEBRILE. ALL NEEDS AND CARE ATTENDED WELL. SAFETY MEASURES IN PLACE. CALL LIGHT WITHIN REACH. WILL ENDORSE TO LOG GRADER NURSE FOR XIOMY.
[2018-09-11 20:00] VITALS: BP 122/83
[2018-09-11] MEDS: MIRTAZAPINE 30 MG TABLET PO SCH (21:13)
[2018-09-11] MEDS: OLANZAPINE 15 MG PO SCH (21:13)
--- NOTE | 2018-09-12 06:42 | NUR ---
MS RN NOTES AWAKE & RESPONSIVE. NOT IN ANY DISTRESS. NO SOB NOTED. DENIES ANY PAIN OR DISCOMFORT AT THIS TIME. MONITORED ACCORDINGLY. SLEPT FOR 8 HRS. CALL LIGHT WITHIN REACH. BED IN LOWEST POSITION. SR UP X 2 FOR SAFETY. WILL ENDORSE TO NEXT SHIFT.
--- NOTE | 2018-09-12 07:11 | NUR ---
MS RN OPENING NOTES RECEIVED PT IN ROOM AWAKE AND GETTING READY FOR SHOWER. A/O X4. ABLE TO MAKE NEEDS KNOWN, DENIES PAIN OR ANY DISCOMFORTS AT THIS TIME. ON ROOM AIR, BREATHING EVEN AND UNLABORED. NO SOB NOTED. SAFETY MEASURES IN PLACE. CALL LIGHT WITHIN REACH. WILL CONTINUE TO MONITOR PT ACCORDINGLY.
[2018-09-12 08:00] VITALS: BP 118/78
[2018-09-12] MEDS: HYDROCHLOROTHIAZIDE 25 MG PO SCH (08:36)
[2018-09-12] MEDS: LORAZEPAM 1 MG TABLET FOR AGITATION PO PRN (10:10)
[2018-09-12] MEDS: ACETAMINOPHEN ES 500 MG TABLET PO PRN (10:10)
--- NOTE | 2018-09-12 11:23 | NUR ---
RN NOTES PATIENT CAME TO NURSES STATION AND VERBALIZED THAT HE HAS HEADACHE AND HE'S ANXIOUS. HE REQUESTED TYLENOL AND ATIVAN. PRN TYLENOL 1000MG P0 AND PRN ATIVAN 1MG PO GIVEN AT 1010. WILL CONTINUE TO MONITOR PT.
[2018-09-12 16:00] VITALS: BP 144/63
--- NOTE | 2018-09-12 18:35 | NUR ---
MS RN CLOSING NOTES PATIENT IN BED AWAKE AND WATCHING TV. A/O X4. ABLE TO MAKE NEEDS KNOWN AND AMBULATORY. NO ACUTE CHANGES THROUGHOUT SHIFT. NO INAPPROPRIATE BEHAVIOR EXHIBITED. SKIN DRY AND WARM TO TOUCH. AFEBRILE. ALL NEEDS AND CARE ATTENDED WELL. ALL SAFETY MEASURES KEPT IN PLACE. CALL LIGHT WITHIN REACH. WILL ENDORSE TO DRAFTER MECHANICAL NURSE FOR XIOMY.
--- NOTE | 2018-09-12 19:07 | NUR ---
MS RN RECEIVE PT AWAKE IN BED WATCHING TV, A/O X 3, RESPIRATIONS EVEN AND UNLABORED, NO SOB NOTED, NO DISTRESS, SAFETY MEASURES IN PLACE. WILL CONTINUE TO MONITOR.
[2018-09-12 20:00] VITALS: BP 140/82
[2018-09-12] MEDS: ZOLPIDEM TARTRATE 10 MG TABLET PO PRN (22:00)
--- NOTE | 2018-09-13 06:15 | NUR ---
MS RN ASLEEP AND EASILY AWAKEN. PT SLEPT WELL THROUGHOUT THE NIGHT, NO AKATHISIA OR TREMORS NOTED, NO EPS AND NO PSYCHIATRIC INSTABILITY, NEEDS ATTENDED AND ANTICIPATED, NURSING CARE RENDERED, KEPT CLEAN AND COMFORTABLE. SAFETY MEASURES AT ALL TIMES. ENDORSE TO NEXT SHIFT
--- NOTE | 2018-09-13 07:49 | NUR ---
MS/RN Patient received Patient received from home mortgage disclosure act specialist. A/O X4, vital signs stable, denies any pain or discomfort. Will continue to monitor and ensure safety.
[2018-09-13 07:52] VITALS: BP 108/77
[2018-09-13 08:00] VITALS: BP 108/77
[2018-09-13] MEDS: LORAZEPAM 1 MG TABLET FOR AGITATION PO PRN (08:22)
[2018-09-13] MEDS: HYDROCHLOROTHIAZIDE 25 MG PO SCH (08:22)
--- NOTE | 2018-09-13 09:13 | NUR ---
MS/RN Ativan Ativan 1mg administered for anxiety and restlessness.
--- NOTE | 2018-09-13 13:37 | NUR ---
MS/RN Rounds Patient calm and cooperative with plan of care, no behavior concerns.
[2018-09-13 16:00] VITALS: BP 129/81
--- NOTE | 2018-09-13 18:02 | NUR ---
MS/RN End note Patient has remained calm and cooperative throughout the day, no behavior concerns. Will endorse to briquette maker.
--- NOTE | 2018-09-13 19:18 | NUR ---
MS RN RECEIVE PT AWAKE IN BED WATCHING TV,A/O X 4 STABLE, NO SOB NOTED, NO DISTRESS, SAFETY MEASURES IN PLACE. WILL CONTINUE TO MONITOR.
[2018-09-13 20:00] VITALS: BP 108/85
[2018-09-13] MEDS: ZOLPIDEM TARTRATE 10 MG TABLET PO PRN (21:26)
--- NOTE | 2018-09-14 06:08 | NUR ---
MS RN ASLEEP AND EASILY AWAKEN, RESPIRATIONS EVEN AND UNLABORED. NO PSYCHIATRIC INSTABILITY, NO AKATHISIA OR TREMORS NOTED, NO EPS. SLEPT WELL THROUGHOUT THE NIGHT 9 HOURS, NEEDS ATTENDED AND ANTICIPATED, NURSING CARE RENDERED, KEPT CLEAN AND COMFORTABLE. SAFETY MEASURES AT ALL TIMES. ENDORSE TO NEXT SHIFT.
--- NOTE | 2018-09-14 07:34 | NUR ---
RN OPENING NOTE PT WAS RECEIVED IN BED AT LOWEST AND LOCKED POSITION WITH SIDE RAILS UP X2, A/O X4, BREATHING EVEN AND UNLABORED ON RA, NO S/S OF ANY DISTRESS OR PAIN NOTED TO AT THIS TIME, NO IV IN PLACE, INFORMED BY PULP ROLLER RN TO HOLD ATIVAN TODAY 09/14 AND THAT IT IS TO BE RESUMED THE DAY AFTER, SAFETY PRECAUTIONS IN PLACE, CALL LIGHT WITHIN REACH, WILL MONITOR PT ACCORDINGLY
[2018-09-14 08:00] VITALS: BP 113/86
--- NOTE | 2018-09-14 09:00 | NUR ---
RN NOTE DR SILVA PAGED REGARDING PT REQUEST ATIVAN, PER ORDER IT STATES DO NOT USE ATIVAN FOR 3 CONSECUTIVE DAYS AND WAS INFORMED BY ENTRY LEVEL FINANCE TO HOLD ATIVAN TODAY. AWAITING CLARIFICATION FROM MD, WILL MONITOR PT ACCORDINGLY
[2018-09-14] MEDS: HYDROCHLOROTHIAZIDE 25 MG PO SCH (09:06)
[2018-09-14 16:00] VITALS: BP 120/79
--- NOTE | 2018-09-14 18:14 | NUR ---
RN CLOSING NOTE PT IN BED AT LOWEST AND LOCKED POSITION WITH SIDE RAILS UP X2, A/O X4, BREATHING EVEN AND UNLABORED ON RA, NO S/S OF ANY DISTRESS OR PAIN NOTED TO AT THIS TIME, NO IV IN PLACE, , SAFETY PRECAUTIONS IN PLACE, CALL LIGHT WITHIN REACH, ALL NEEDS ATTENDED TO, WILL ENDORSE TO SENIOR TECHNICAL PROGRAM MANAGER RN FOR XIOMY.
--- NOTE | 2018-09-14 19:00 | NUR ---
MS RN OPENING NOTES Received patient A/O x4, awake on supine position on bed watching TV. Ambulatory with steady gait. No discomfort noted, patient denies any pain. No IV site present. On clinical trial to start 09/15/18. Kept bed low and locked, siderails x2 up, call light within easy reach. Will continue to monitor accordingly.
[2018-09-14 19:52] VITALS: BP 125/80
[2018-09-14 20:00] VITALS: BP 125/90
--- NOTE | 2018-09-14 20:16 | NUR ---
MS RN NOTES Patient backed from smoking, accompanied by STAFF EDUCATOR. Patient asking for sleeping pill. Administered as ordered. Will continue to monitor accordingly.
[2018-09-14] MEDS: ZOLPIDEM TARTRATE 10 MG TABLET PO PRN (20:18)
--- NOTE | 2018-09-15 06:50 | NUR ---
MS RN CLOSING NOTES Patient asleep at this time. Remained on RA, no SOB/respiratory distress noted. No complaints made. Afebrile, no new unusualities. All nursing needs attended. Due meds given as ordered. Kept bed low and locked, siderails up. Call light within easy reach. Endorsed to the next shift.
--- NOTE | 2018-09-15 07:43 | NUR ---
MS/RN Patient recieved Patient received from third shift lieutenant. A/O X4, vital signs stable, denies any pain or discomfort at this time. No needs, will continue to monitor and ensure safety.
[2018-09-15 07:51] VITALS: BP 121/81
[2018-09-15 08:00] VITALS: BP 121/81
[2018-09-15] MEDS: HYDROCHLOROTHIAZIDE 25 MG PO SCH (08:17)
--- NOTE | 2018-09-15 10:10 | NUR ---
MS/RN Off unit Patient escorted off unit by office personal from Dr Watson's office for office visit.
--- NOTE | 2018-09-15 11:39 | NUR ---
MS/RN Back to floor Patient back in room. No new orders.
[2018-09-15 16:00] VITALS: BP 119/81
[2018-09-15 16:10] VITALS: BP 119/81
[2018-09-15] MEDS: INVESTIGATIONAL MED RGH-MD-24 1 CAP PO SCH (16:27)
--- NOTE | 2018-09-15 18:33 | NUR ---
MS/RN End note Patient remains in stable condition, no behavior concerns today. Seen by Dr Maria, per okay to give ativan. Will endorse to outsole cementer machine.
--- NOTE | 2018-09-15 19:20 | NUR ---
MS RN OPENING NOTES: RECEIVED PT ON ROOM AIR AND IS TOLERATING WELL. PT ON HIS PHONE AT THIS TIME AND MINIMALLY SPEAKING. NO IV NOTED AT THIS TIME PER MD ORDER. NO SOB NOTED. NO S/S OF DISTRESS. BED KEPT IN LOW, LOCKED POSITION, AND SIDE RAILS X 2UP. WILL CONTINUE TO MONITOR PT.
[2018-09-15 20:00] VITALS: BP 146/80
--- NOTE | 2018-09-16 06:30 | NUR ---
MS RN NOTES: PT IN SHOWER AT THIS TIME.
[2018-09-16] MEDS: LORAZEPAM 1 MG TABLET FOR AGITATION PO PRN (06:41)
[2018-09-16] MEDS: ACETAMINOPHEN ES 500 MG TABLET PO PRN (06:43)
--- NOTE | 2018-09-16 06:46 | NUR ---
MS RN NOTES: PT APPEARS TO BE VERY AGITATED AND REQUESTED FOR SOMETHING TO CALM DOWN. PT WAS ADMINISTERED ATIVAN 1MG PO.
--- NOTE | 2018-09-16 06:46 | NUR ---
MS RN NOTES: PT SAYING THAT THE INVESTIGATIONAL MEDICATION GIVEN YESTERDAY CAUSED A HEADACHE FOR HIM AND WOULD LIKE SOMETHING FOR HEADACHE. PT WAS ADMINISTERED TYLENOL 1,000MG PO.
--- NOTE | 2018-09-16 06:49 | NUR ---
MS RN CLOSING NOTES: ALL NEEDS WERE ATTENDED AND ANTICIPATED FOR. PT FEELING VERY ANXIOUS THIS AM AND UPSET THAT THE MEDICATION GIVEN TO HIM CAUSED HIM TO HAVE A HEADACHE. PT ADMINISTERED ATIVAN 1MG AND TYLENOL 1,000MG PO. PT ISOLATES HIMSELF AND SHUTS HIS DOOR. NO IV NOTED AT THIS TIME. BED KEPT IN LOW, LOCKED POSITION, AND SIDE RAILS X2UP. WILL ENDORSE TO AM NURSE FOR XIOMY.
--- NOTE | 2018-09-16 07:30 | NUR ---
MS/RN Patient received Patient received, sleeping soundly. Appears in no distress or discomfort. Will continue to monitor and ensure safety.
[2018-09-16 08:00] VITALS: BP 131/73
[2018-09-16] MEDS: HYDROCHLOROTHIAZIDE 25 MG PO SCH (08:26)
--- NOTE | 2018-09-16 08:27 | NUR ---
MS/RN Medications Morning medication administered as ordered.
--- NOTE | 2018-09-16 13:00 | NUR ---
MS/RN Behavior Patient has remained isolated in room this morning, only coming out to go smoke. Unwilling to engage in any conversation with staff or answer any questions. Will continue to monitor for safety.
[2018-09-16] MEDS: INVESTIGATIONAL MED RGH-MD-24 1 CAP PO SCH (16:42)
[2018-09-16 18:00] VITALS: BP 124/86
--- NOTE | 2018-09-16 18:13 | NUR ---
MS/RN End note Has remained isolated in room for majority of the day, very limited verbal interaction for nursing staff. No prn medications requested. Will endorse to shift stacker.
[2018-09-16 18:15] VITALS: BP 124/66
--- NOTE | 2018-09-16 19:30 | NUR ---
MS RN OPENING NOTES: RECEIVED PT ON ROOM AIR AND IS TOLERATING WELL. NO SOB NOTED. NO S/S OF DISTRESS. PT SPEAKS VERY MINIMAL AND ISOLATES HIMSELF. PT HAS EARPHONES AND LISTENING TO MUSIC AT THIS TIME. PT REQUESTING FOR SLEEPING AID A LITTLE LATER. NO IV NOTED AT THIS TIME. BED KEPT IN LOW, LOCKED POSITION, AND SIDE RAILS X 2UP. WILL CONTINUE TO MONITOR PT.
[2018-09-16 20:17] VITALS: BP 116/84
--- NOTE | 2018-09-16 20:21 | NUR ---
MS RN NOTES: PT REQUESTING FOR A SMOKE BREAK. PT ACCOMPANIED BY FATEMEH LO.
--- NOTE | 2018-09-16 20:37 | NUR ---
MS RN NOTES: PT BACK FROM SMOKE BREAK.
[2018-09-16] MEDS: ZOLPIDEM TARTRATE 10 MG TABLET PO PRN (20:55)
--- NOTE | 2018-09-16 20:57 | NUR ---
MS RN NOTES: PT REQUESTING FOR SOMETHING FOR SLEEP. PT ADMINISTERED AMBIEN 10MG PO. INSTRUCTED PT TO USE CALL LIGHT IF HE NEEDS ANYTHING HE DOES NOT LIKE PEOPLE ALWAYS GOING IN HIS ROOM.
--- NOTE | 2018-09-17 06:08 | NUR ---
MS RN NOTES: PT UP AND IN SHOWER AT THIS TIME.
--- NOTE | 2018-09-17 06:23 | NUR ---
MS RN NOTES: PT WENT OUT FOR SMOKE BREAK ACCOMPANIED WITH FATEMEH LO.
--- NOTE | 2018-09-17 06:38 | NUR ---
MS RN NOTES: PT BACK FROM SMOKE BREAK.
--- NOTE | 2018-09-17 06:39 | NUR ---
MS RN CLOSING NOTES: ALL NEEDS WERE ATTENDED AND ANTICIPATED FOR. PT FEELS LESS AGITATED THAT HE WAS ABLE TO GO FOR A SMOKE BREAK. NO IV NOTED AT THIS TIME. PT UP AND IS SITTING UP IN BED. BED KEPT IN LOW, LOCKED POSITION, AND SIDE RAILS X 2UP. PT CONTINUES TO ISOLATE HIMSELF AND SHUTS HIS DOOR AND INTERACTS WITH STAFF ONLY IF HE WANTS SOMETHING. WILL ENDORSE TO AM NURSE FOR XIOMY.
--- NOTE | 2018-09-17 07:15 | NUR ---
RN OPENING NOTES RECEIVED PATIENT IN BED RESTING. A/OX3, ABLE TO MAKE NEEDS KNOWN. PATIENT IS CALM AND COOPERATIVE. NOT IN ANY FORM OF DISTRESS, NO SOB. DENIED PAIN OR DISCOMFORT. KEPT PATIENT SAFE AND COMFORTABLE. BED IN LOW,LOCKED POSITION, SIDERAILS UPX2,CALL LIGHT IN REACH. REQUESTED TO SMOKE AT 0830. WILL CONTINUE TO MONITOR ACCORDINGLY.
[2018-09-17 08:00] VITALS: BP 117/83
[2018-09-17] MEDS: HYDROCHLOROTHIAZIDE 25 MG PO SCH (08:21)
--- NOTE | 2018-09-17 08:30 | NUR ---
RN NOTES WENT FOR SMOKE BREAK, ACCOMPANIED BY MARIAMA LO
--- NOTE | 2018-09-17 08:45 | NUR ---
RN NOTES CAME BACK FORM SMOKE BREAK
[2018-09-17 16:00] VITALS: BP 120/73
--- NOTE | 2018-09-17 17:30 | NUR ---
RN NOTES WENT FOR A SMOKE BREAK. ACCOMPANIED BYELMA
[2018-09-17] MEDS: INVESTIGATIONAL MED RGH-MD-24 1 CAP PO SCH (17:37)
--- NOTE | 2018-09-17 18:00 | NUR ---
RN NOTES CAME BACK FROM SMOKE BREAK.
--- NOTE | 2018-09-17 19:17 | NUR ---
RN CLOSING NOTES PATIENT IN STABLE CONDITION. ALL NEEDS ATTENDED AND PROVIDED. ALL DUE MEDICATIONS ADMINISTERED, ORDERED. KEPT SAFE AND COMFORTABLE. BED IN LOW/LOCKED POSITION, SIDERAILS UPX2, CALL LIGHT IN REACH. ENDORSED TO NIGHT RN FOR XIOMY.
--- NOTE | 2018-09-17 19:30 | NUR ---
RECEIVED PATIENT IN BED AWAKE. AO X 3, ABLE TO MAKE NEEDS KNOWN. NO ACUTE DISTRESS NOTED. DENIES ANY PAIN AT THIS TIME. SAFETY REMINDERS GIVEN. ON LOW BED WITH BILATERAL UPPER SIDE RAILS UP. CALL FRANK WITHIN EASY REACH. WILL CONTINUE TO MONITOR.
[2018-09-17 20:00] VITALS: BP 120/82
[2018-09-17] MEDS: ZOLPIDEM TARTRATE 10 MG TABLET PO PRN (21:20)
--- NOTE | 2018-09-18 06:00 | NUR ---
PATIENT ASLEEP, EASILY AROUSABLE. RESPIRATIONS EVEN. NO SIGNS OF PAIN NOTED. PATIENT SLEPT WELL AFTER AMBIEN ADMINISTRATION. NEEDS ATTENDED. SAFETY PRECAUTIONS AND COMFORT MEASURES IN PLACE. WILL GIVE REPORT TO DAY SHIFT FOR CONTINUITY OF CARE.
--- NOTE | 2018-09-18 07:15 | NUR ---
RN OPENING NOTES RECEIVED PATIENT IN BED RESTING. A/OX3, ABLE TO MAKE NEEDS KNOWN. PATIENT IS CALM AND COOPERATIVE. NOT IN ANY FORM OF DISTRESS, NO SOB. DENIED PAIN OR DISCOMFORT. KEPT PATIENT SAFE AND COMFORTABLE. BED IN LOW,LOCKED POSITION, SIDERAILS UPX2,CALL LIGHT IN REACH. WILL CONTINUE TO MONITOR ACCORDINGLY.
[2018-09-18 08:00] VITALS: BP 128/77
[2018-09-18] MEDS: HYDROCHLOROTHIAZIDE 25 MG PO SCH (08:25)
--- NOTE | 2018-09-18 08:30 | NUR ---
RN NOTES SMOKE BREAK, ACCOMPANIED BY TERESITA CAMPUZANO.
--- NOTE | 2018-09-18 08:45 | NUR ---
RN NOTES CAME BACK ON UNIT
[2018-09-18 16:00] VITALS: BP 130/70
[2018-09-18] MEDS: INVESTIGATIONAL MED RGH-MD-24 1 CAP PO SCH (17:41)
--- NOTE | 2018-09-18 19:30 | NUR ---
RECEIVED PATIENT UP IN CHAIR IN ROOM. AO X 3, ABLE TO MAKE NEEDS KNOWN. NO ACUTE DISTRESS NOTED. DENIES ANY PAIN AT THIS TIME. CALM AT THIS TIME. SAFETY REMINDERS GIVEN. ON LOW BED WITH BILATERAL UPPER SIDE RAILS UP. CALL FRANK WITHIN EASY REACH. WILL CONTINUE TO MONITOR.
--- NOTE | 2018-09-18 19:30 | NUR ---
RN CLOSING NOTES PATIENT IN STABLE CONDITION. ALL NEEDS ATTENDED AND PROVIDED. ALL DUE MEDICATIONS ADMINISTERED ORDERED. KEPT SAFE AND COMFORTABLE. BED IN LOW/LOCKED POSITION, SIDERAILS UPX2, CALL LIGHT IN REACH. ENDORSED TO NIGHT RN FOR XIOMY.
[2018-09-18 20:00] VITALS: BP 127/74
[2018-09-18] MEDS: ZOLPIDEM TARTRATE 10 MG TABLET PO PRN (21:45)
--- NOTE | 2018-09-19 06:00 | NUR ---
PATIENT ASLEEP, EASILY AROUSABLE. RESPIRATIONS EVEN. NO SIGNS OF PAIN NOTED. NEEDS ATTENDED. SAFETY PRECAUTIONS AND COMFORT MEASURES IN PLACE. WILL GIVE REPORT TO DAY SHIFT FOR CONTINUITY OF CARE.
--- NOTE | 2018-09-19 07:25 | NUR ---
MS/RN OPENING NOTE THE PATIENT ALERT AND ORIENTED X3. IN ROOM AIR AND DENIES SOB. RESPIRATION REGULAR AND UNLABORED. DENIES PAIN. THE PATIENT IS IN NO APPARENT DISTRESS. DENIES SI/HI AT THIS TIME. NO IV SITE. FREQUENT VISUAL CHECK DONE. CALL LIGHT WITHIN REACH. WILL CONTINUE TO MONITOR.
[2018-09-19 08:00] VITALS: BP 134/88
[2018-09-19] MEDS: HYDROCHLOROTHIAZIDE 25 MG PO SCH (08:16)
[2018-09-19] MEDS: LORAZEPAM 1 MG TABLET FOR AGITATION PO PRN (08:21)
--- NOTE | 2018-09-19 15:00 | NUR ---
MS/RN NOTE THE PATIENT ALERT AND ORIENTED X3. IN ROOM AIR AND DENIES SOB. RESPIRATION REGULAR AND UNLABORED. DENIES PAIN. THE PATIENT IN NO APPARENT DISTRESS. DISCHARGE EDUCATION PROVIDED AND HE VERBALIZED UNDERSTANDING. THE PATIENT IS REMINDED TO MAKE UP APPT COLORECTAL SURGEON. THE PATIENT VERBALIZED UNDERSTANDING. COFFEE FARMER BY SON ON A PRIVATE CAR. Addendum: 09/19/18 at 1724 by DONALD SCOTT RN ENTERED ON WRONG PATIENT
[2018-09-19 16:00] VITALS: BP 120/82
--- NOTE | 2018-09-19 17:22 | NUR ---
MS/RN NOTE THE PATIENT WAS CLEARED FOR DISCHARGE BY DR RICE AND SURGEON LOULOU SYLVESTER. Addendum: 09/19/18 at 1724 by DONALD SCOTT RN ENTERED ON WRONG PATIENT.
[2018-09-19] MEDS: INVESTIGATIONAL MED RGH-MD-24 1 CAP PO SCH (17:54)
--- NOTE | 2018-09-19 18:20 | NUR ---
MS/RN CLOSING NOTE THE PATIENT ALERT AND ORIENTED X3. DENIES SOB. IN ROOM AIR AND SATURATION IS AT 98%. DENIES PAIN. THE PATIENT IN NO APPARENT DISTRESS. DENIES SI/HI. BED LOW AND LOCKED. SIDE RAILS UP X2. CALL LIGHT WITHIN REACH. WILL ENDORSE TO BANK RUNNER.
--- NOTE | 2018-09-19 19:25 | NUR ---
MS/RN OPENING NOTES PT RECEIVED AWAKE, RESTING COMFORTABLY IN BED. A/OX3. ON ROOM AIR, BREATHING EVEN AND UNLABORED. IN NO ACUTE DISTRESS. DENIES SOB AND PAIN AT THIS TIME. NO IV SITE PER PROTOCOL. DENIES SI/HI. BED IN LOW/LOCKED POSITION WITH CALL LIGHT IN REACH. BILATERAL UPPER SIDE RAILS IN PLACE. NO NEEDS EXPRESSED AT THIS TIME. WILL CONTINUE TO MONITOR
[2018-09-19 20:00] VITALS: BP 125/82
[2018-09-19 20:37] VITALS: BP 125/82
[2018-09-19] MEDS: ZOLPIDEM TARTRATE 10 MG TABLET PO PRN (21:00)
--- NOTE | 2018-09-20 02:09 | NUR ---
MS/RN NOTES PT ROUNDING DONE. PT SLEEPING, BREATHING EVEN AND UNLABORED. IN NO ACUTE DISTRESS.
--- NOTE | 2018-09-20 06:51 | NUR ---
MS/RN CLOSING NOTES PT AWAKE, RESTING COMFORTABLY IN BED. REMAINS ON ROOM AIR, BREATHING EVEN AND UNLABORED. DENIES SOB AND PAIN. IN NO ACUTE DISTRESS. DENIES SI/HI, WITH AUDITORY HALLUCINATIONS. CALM AND COOPERATIVE DURING SHIFT. NO BEHAVIOR ISSUES DURING SHIFT. SLEPT APPROX. 6 HOURS. BED IN REMAINS IN LOW/LOCKED POSITION WITH CALL LIGHT IN REACH. BILAT. UPPER SIDE RAILS IN PLACE. WILL ENDORSE TO DAY SHIFT RN XIOMY.
--- NOTE | 2018-09-20 07:49 | NUR ---
RN OPENING NOTES PT AWAKE AND SITTING ON CHAIR AT BEDSIDE. NO COMPLAINTS OF PAIN, SOB OR DISTRESS AT THIS TIME. PT COOPERATIVE. NO IV ACCESS PER PROTOCOL. SAFETY PRECAUTIONS IN PLACE, BED IN LOWEST LOCKED POSITION, X2 SIDE RAILS UP AND CALL LIGHT WITHIN REACH. WILL CONTINUE TO MONITOR.
[2018-09-20] MEDS: HYDROCHLOROTHIAZIDE 25 MG PO SCH (08:13)
[2018-09-20 08:23] VITALS: BP 124/68
[2018-09-20] MEDS: LORAZEPAM 1 MG TABLET FOR AGITATION PO PRN (11:09)
[2018-09-20 16:00] VITALS: BP 129/77
[2018-09-20] MEDS: INVESTIGATIONAL MED RGH-MD-24 1 CAP PO SCH (16:20)
--- NOTE | 2018-09-20 18:41 | NUR ---
RN CLOSING NOTES PT AWAKE AND SITTING ON CHAIR AT BEDSIDE. NO COMPLAINTS OF PAIN, SOB OR DISTRESS DURING SHIFT. PT COOPERATIVE. NO IV ACCESS PER PROTOCOL. SAFETY PRECAUTIONS IN PLACE, BED IN LOWEST LOCKED POSITION, X2 SIDE RAILS UP AND CALL LIGHT WITHIN REACH. ALL NEEDS MET DURING SHIFT. ALL ORDERS CARRIED OUT. WILL ENDORSE TO SALES ACCOUNT MANAGER NURSE FOR CONTINUITY OF CARE.
[2018-09-20 20:00] VITALS: BP 113/83
[2018-09-20] MEDS: ZOLPIDEM TARTRATE 10 MG TABLET PO PRN (20:58)
--- NOTE | 2018-09-21 05:49 | NUR ---
RN MS NOTES PATIENT UP AND SHOWERING AT THIS TIME
--- NOTE | 2018-09-21 06:54 | NUR ---
RN MS CLOSING NOTES PATIENT RESTING IN BED. NOT IN ANY DISTRESS. NO ACUTE CHANGES THROUGHOUT SHIFT. NO COMPLAINTS OF PAIN OR DISCOMFORT. NO FACIAL GRIMACING. NO IV ACCESS PATIENT IS A CLINICAL TRIAL PATIENT. ALL OTHER NEEDS MET. SAFETY MEASURES IN PLACE. CALL LIGHT WITHIN REACH. WILL ENDORSE TO ONCOMING NURSE FOR XIOMY.
[2018-09-21 08:00] VITALS: BP_SYST 116; BP_SYST 138; BP_DIAS 76; BP_DIAS 86
[2018-09-21] MEDS: HYDROCHLOROTHIAZIDE 25 MG PO SCH (08:10)
--- NOTE | 2018-09-21 08:40 | NUR ---
Patient dropped home med on the floor. Requested second tabled and administered
--- NOTE | 2018-09-21 12:30 | NUR ---
PATIENT WANTS TO KNOW WHAT TIME HE WILL BE DISCHARGE TOMORROW. PAGED DR. SILVA OFFICE AND LEFT A MESSAGE FOR HIM.
[2018-09-21 16:00] VITALS: BP 116/86
[2018-09-21] MEDS: INVESTIGATIONAL MED RGH-MD-24 1 CAP PO SCH (17:04)
--- NOTE | 2018-09-21 19:43 | NUR ---
PATIENT RESTING IN BED. NOT IN ANY DISTRESS. NO DISTRESS NOTED. ALL NEEDS ATTENDED. SAFETY MEASURES IN PLACE. CALL LIGHT WITHIN REACH. WILL ENDORSE TO ONCOMING NURSE FOR XIOMY.
[2018-09-21 20:00] VITALS: BP 119/92
[2018-09-21] MEDS: ZOLPIDEM TARTRATE 10 MG TABLET PO PRN (20:42)
--- NOTE | 2018-09-22 06:32 | NUR ---
RN MS CLOSING NOTES PATIENT RESTING IN BED. NOT IN ANY DISTRESS. NO ACUTE CHANGES THROUGHOUT SHIFT. NO COMPLAINTS OF PAIN OR DISCOMFORT. NO FACIAL GRIMACING. NO IV ACCESS PATIENT IS A CLINICAL TRIAL PATIENT. ALL OTHER NEEDS MET. SAFETY MEASURES IN PLACE. CALL LIGHT WITHIN REACH. WILL ENDORSE TO ONCOMING NURSE FOR XIOMY. Addendum: 09/22/18 at 0632 by JUANCARLOS FAIRBANKS RN ANTICIPATING DISCHARGE TODAY.
--- NOTE | 2018-09-22 07:15 | NUR ---
MS/RN OPENING NOTE THE PATIENT ALERT AND ORIENTED X3. DENIES PAIN. IN ROOM AIR AND DENIES SOB. RESPIRATION REGULAR AND UNLABORED. THE PATIENT DENIES SI/HI. THE PATIENT IS NOTED TO BE ANXIOUS ABOUT GETTING DISCHARGE. NO DISCHARGE ORDER AT THIS TIME. WILL FOLLOW UP WITH MD FOR DISCHARGE ORDER. BED LOW AND LOCKED. SIDE RAILS UP X1. CALL LIGHT WITHIN REACH. WILL CONTINUE TO MONITOR.
--- NOTE | 2018-09-22 08:44 | NUR ---
MS/RN NOTE RECEIVED A CALL FROM DR SILVA WITH AN ORDER TO DISCHARGE THE PATIENT HOME. THE ORDER IS READ BACK, VERIFIED. NOTED AND CARRIED OUT.
--- NOTE | 2018-09-22 08:58 | NUR ---
MS/RN CLOSING NOTE THE PATIENT ALERT AND ORIENTED X3. IN ROOM AIR AND DENIES SOB. RESPIRATION EVEN AND UNLABORED. DENIES PAIN. THE PATIENT DENIES SI/HI AT THIS TIME. THE PATIENT REFUSES VITAL SIGNS TO BE CHECKED DESPITE EXPLAINING RISKS AND BENEFITS MULTIPLE TIMES. DISCHARGE EDUCATION PROVIDED AND HE VERBALIZED UNDERSTANDING. THE PATIENT GOT PICKED UP BY A DR SILVA OFFICE SELF PROPELLED DREDGE OPERATOR.
[2018-09-22] MEDS: HYDROCHLOROTHIAZIDE 25 MG PO SCH (09:00)
== END 2018-09-22 09:30 | disposition home or self-care (01) | DRG 951 ==
LOC: MEDSG2 13:07
PROVIDERS: ADMIT Psychiatry & Neurology Psychiatry; ATTEND Psychiatry & Neurology Psychiatry
DX: Z00.6 Encounter for examination for normal comparison and control in clinical research program (principal); F20.0 Paranoid schizophrenia; I10 Essential (primary) hypertension
CPT/HCPCS: 87081-TC; G0378; J7030